=== PATIENT | female | born 1940 | race Caucasian/White ===

== ENCOUNTER 2017-10-14 09:26 | Inpatient (IN) | payer MEDICARE, MEDICAID ==
[2017-10-14 10:19] LABS: #Basophils 0.1 thou/uL (0.0-0.2); #Eosinphils 0.4 thou/uL (0.0-0.7); #Lymphocytes 2.7 thou/uL (1.20-3.40); #Monocytes 0.5 thou/uL (0.11-0.59); #Neutrophils 3.8 thou/uL (1.40-6.50); %Eosinophils 5.6 % (0.0-10.0); %Lymphocytes 36.4 % (21.0-51.0); %Monocytes 6.3 % (0.0-10.0); Hematocrit 42.4 % (36.0-47.0); Mean Platelet Volume 7.8 fL (7.4-10.4); Red Blood Cell (RBC) Count 4.72 mill/uL (4.20-5.40); White Blood Cell (WBC) Count 7.5 thou/uL (4.8-10.8)
[2017-10-14] MEDS ORDERED: Ketorolac Tromethamine 30 MG/ML VIAL ONE ×2 (10:25)
[2017-10-14] MEDS ORDERED: Lorazepam 2 MG/ML VIAL ONE (10:25)
[2017-10-14 10:37] LABS: ALT (SGPT) 10 U/L (8-55); AST (SGOT) 17 U/L (5-34); Acetaminophen Less than 6.0 mcg/mL (10.0-30.0); Alkaline Phosphatase 121 U/L (40-150); Anion Gap 16 mmol/L (10-20); BUN (Urea Nitrogen) 18 mg/dL (9.8-20.1); Bilirubin, Total 0.3 mg/dL (0.2-1.2); CK (CPK) 58 U/L (29-168); Calc. Creatinine Clearance 0 mL/min (70-130); Calcium 9.2 mg/dL (7.8-10.44); Carbon Dioxide 20 mmol/L (23-31); Chloride 107 mmol/L (98-107); Estimated GFR-MDRD 51; Globulin 3.1 g/dL (2.4-3.5); Salicylate Less than 8.0 mg/dL (15.0-30.0)
[2017-10-14 10:52] LABS: Troponin I 0.013 ng/mL (< 0.028)
--- NOTE | 2017-10-14 12:10 | CT ---
CT BRAIN: Date: 10/14/17 PROVIDED CLINICAL HISTORY: Altered mental status. FINDINGS: The ventricular system appears normal in size and morphology. There is no evidence for intracranial h emorrhage or mass effect. The extracranial soft tissues and osseous structures demonstrate no acute a bnormality. IMPRESSION: No evidence for intracranial hemorrhage or mass effect. POS: [facility]
[2017-10-14 13:07] LABS: Bilirubin Negative (Negative); Blood, Urine Negative (Negative); Glucose, Urine (Dipstick) Negative (Negative); Ketone, Urine Negative (Negative); Nitrite Negative (Negative); Protein, Urine (Dipstick) Negative (Neg-Trace); Urobilinogen 0.2 mg/dL (0.2-1.0)
[2017-10-14 13:19] LABS: Amphetamine Not Detected (NotDetected); Methadone Not Detected (NotDetected); Methamphetamine Not Detected (NotDetected)
[2017-10-14] MEDS ORDERED: Morphine 4 MG/ML VIAL ONE (15:09)
[2017-10-14] MEDS ORDERED: Bisacodyl 5 MG TAB PO PRN (15:44)
[2017-10-14] MEDS ORDERED: Ondansetron HCl/PF 4 MG/2 ML Vial IVP PRN (15:44)
[2017-10-14 15:49] VITALS: BMI 29.2
[2017-10-14] MEDS ORDERED: Morphine PF 1 MG/ML SYR IVP SCH (16:00)
--- NOTE | 2017-10-14 16:13 | HP ---
HISTORY OF PRESENT ILLNESS: Mrs. Hogan is a 76 years old woman. She came to this facility earlier today, because of increasing confusion, hallucination, which she has been experimenting for the last 2 weeks or so. The patient has a history of chronic backache. She was on narcotics. Recen tly, she decided to get off of her narcotics. She started experimenting some vision problems we ment ioned earlier. She stopped her narcotics and she received some substitute medication from her primar y physician a couple of days ago, which are yet to be identified. However, her condition did not im prove. She came to the ER and was found to be very agitated, confused, hallucinating. In view of th is fact, it was decided to admit her for management. PAST MEDICAL HISTORY: Remarkable for hypertension; diet-controlled diabetes mellitus; COPD; and she was told to have some valvular heart disease, which cannot be identified. We have to mention that hi story is obtained from the . There is no prior history of congestive heart failure. PAST SURGICAL HISTORY: Remarkable for podiatric surgery, hysterectomy, appendectomy, multiple back s urgeries. ALLERGIES: NYQUIL, STADOL, TOFRANIL and TRAMADOL. SOCIAL HISTORY: She is a former smoker; last time she smoked was more than 4 years ago. There is no history of ETOH abuse. FAMILY HISTORY: Reviewed and is not contributory. REVIEW OF SYSTEMS: Constitutional: There is no fever, no weakness. HEENT: No headache, no ocular pain, no sore throat, no rhinorrhea, no earache, no epistaxis. Neck: No neck pain, no neck stiffnes s. Cardiovascular: No shortness of breath. No chest pain. Pulmonary: No coughing. Gastrointesti nal: She vomited twice this morning. No abdominal pain, no diarrhea. Genitourinary: No dysuria, n o hematuria. Endocrinology: No heat or cold intolerance. No polyuria, polydipsia or polyphagia. M usculoskeletal: History of chronic backache. No muscle pain. Skin: No rash, no itching. Allergie s: No hayfever. Hematology: No abnormal bleeding, no ecchymosis. Lymphatic: No palpable lymphade nopathy, no painful lymphadenopathy. Psychiatric: Very agitated, hallucinating at this time. Neuro logic: No seizure. PHYSICAL EXAMINATION: GENERAL: At the current time, she is alert, agitated as we mentioned earlier. VITAL SIGNS: Her latest vital signs show temperature of 97.5, pulse rate 85, respiratory rate of 20, blood pressure 167/80. HEENT: Her head is normocephalic and atraumatic. Both pupils equal, reactive. Ears and nose normal . Oral mucosa is moist. Pharyngeal area is clear. NECK: Supple. There is no distention of jugular vein. No lymphadenopathy felt. Thyroid gland not palpable. There is no carotid bruit. CHEST: Symmetrical with S1, S2. LUNGS: Clear. ABDOMEN: Soft. Bowel sounds are heard. We could not appreciate any organomegaly. There is no foca l area of tenderness. EXTREMITIES: Limbs show no edema. NEUROLOGIC: She moves all extremities. LABORATORY DATA: CBC showed WBC of 7.5, hemoglobin of 13.6, hematocrit of 42.4, MCV of 89.9, platele ts of 312. Chemistry and electrolytes show sodium of 139, potassium 4.2, chloride 107, CO2 of 20, BU N 18, creatinine 1.05, glucose 113, calcium 9.2, total bilirubin 0.3, AST 17, ALT 10, alkaline phosph atase 121, ammonia 19. CPK 58, troponin 0.013. Total protein 7.0, albumin 3.9, globulin 3.1. TSH 3 .2912. Urinalysis shows specific gravity of 1.010, pH of 6.5, otherwise negative. Drug screen is po sitive only for benzodiazepine, negative for opiates. Head CT was reported to show no evidence of in tracranial hemorrhage or mass effect. ASSESSMENT AND PLAN: This is a 76 years old woman with history of chronic backache, hypert ension, chronic obstructive pulmonary disease, controlled-diabetes mellitus, who recently stopped her narcotics, developed some agitation and hallucination, which had been getting worse over the last 2 weeks or so. Her drug screen is negative for narcotics suggesting possible narcotic withdrawal. We will give a trial of morphine 4 mg IV stat. If her symptoms improve, we will start her on methadone. She will be admitted to the stroke floor for observation.
[2017-10-14] MEDS ORDERED: FLU VACC TS2017-18 (>65YR) 0.5 ML SYRINGE IM ONE (16:15)
[2017-10-14] MEDS: Sodium Chloride 0.9% 1,000 ML IV SCH (17:20)
[2017-10-14] MEDS ORDERED: METHadone HCl 10 MG TAB PO SCH (18:00)
[2017-10-14] MEDS: Famotidine/PF 20 mg/2ml Vial SLOW IVP SCH (21:41)
[2017-10-15] MEDS: Sodium Chloride 0.9% 1,000 ML IV SCH ×3 (03:17→21:19)
[2017-10-15] MEDS: Famotidine/PF 20 mg/2ml Vial SLOW IVP SCH ×2 (08:56→20:29)
[2017-10-15] MEDS: Enoxaparin Sodium 40 MG/0.4 ML SYRINGE SC SCH (08:57)
[2017-10-15] MEDS ORDERED: METHadone HCl 10 MG TAB PO SCH ×2 (09:00)
[2017-10-15] MEDS: Acetaminophen 500 MG TAB PO PRN (09:07)
--- NOTE | 2017-10-15 09:32 | PDOC.PN ---
- Subjective Encounter Start Date: 10/15/17 Encounter Start Time: 09:15 +diffuse pain.. - Objective Resuscitation Status: Resuscitation Status FULL:Full Resuscitation Vital Signs & Weight: Vital Signs (12 hours) Temp Pulse Resp BP Pulse Ox 10/15/17 08:00 98.3 F 88 20 158/59 H 92 L 10/15/17 04:04 98.5 F 88 14 146/78 H 94 L 10/14/17 23:55 97.1 F L 80 12 105/50 L 100 Weight Weight 185 lb 8 oz I&O: 10/14/17 10/15/17 10/16/17 06:59 06:59 06:59 Intake Total 1161 Output Total 700 Balance 461 Result Diagrams: 10/14/17 10:00 10/14/17 10:00 Additional Labs: Accuchecks 10/15/17 10/14/17 10/14/17 06:08 20:56 16:49 POC Glucose 112 H 109 106 10/14/17 15:28 POC Glucose 110 Phys Exam - Physical Examination Constitutional: NAD (Less agitated..) HEENT: sclera anicteric Neck: no JVD Respiratory: clear to auscultation bilateral Cardiovascular: RRR Gastrointestinal: soft Musculoskeletal: no edema Neurological: moves all 4 limbs Dx/Plan (1) Opiate withdrawal Code(s): 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 Comment: still agitated, but better. (2) HTN (hypertension) Code(s): I10 - ESSENTIAL (PRIMARY) HYPERTENSION Status: Chronic Comment: stable. (3) COPD (chronic obstructive pulmonary disease) Status: Chronic Comment: stable. (4) Diabetes Code(s): E11.9 - TYPE 2 DIABETES MELLITUS WITHOUT COMPLICATIONS Status: Acute Comment: BS satisfactory.. - Plan Continue methadone. -: Home soon , on methadone. -: To Detox as outpatient.. * .
[2017-10-15] MEDS ORDERED: Naloxone HCl 0.4 mg/ml Vial ONE ×2 (10:24→10:54)
--- NOTE | 2017-10-15 10:43 | PDOC.EVN ---
Event Note - Event Note Event Note: Was lethargic earlier. Responded well to Dilaudid. Decrease Methadone to 20 mg qd.
[2017-10-15] MEDS ORDERED: Naloxone HCl 0.4 mg/ml Vial IV PRN (12:02)
[2017-10-15] MEDS: Naloxone HCl 0.4 mg/ml Vial IV PRN ×2 (17:35→20:29)
[2017-10-16] MEDS: Naloxone HCl 0.4 mg/ml Vial IV PRN (05:10)
[2017-10-16] MEDS: Sodium Chloride 0.9% 1,000 ML IV SCH ×2 (05:17→09:52)
[2017-10-16 08:19] LABS: #Lymphocytes 0.9 thou/uL (1.20-3.40); #Monocytes 0.7 thou/uL (0.11-0.59); #Neutrophils 9.6 thou/uL (1.40-6.50); %Basophils 0.3 % (0.0-1.0); %Eosinophils 0.3 % (0.0-10.0); %Lymphocytes 7.8 % (21.0-51.0); %Monocytes 5.9 % (0.0-10.0); Hematocrit 37.7 % (36.0-47.0); Mean Platelet Volume 7.8 fL (7.4-10.4); Red Blood Cell (RBC) Count 4.07 mill/uL (4.20-5.40); White Blood Cell (WBC) Count 11.2 thou/uL (4.8-10.8)
[2017-10-16 08:30] LABS: Anion Gap 9 mmol/L (10-20); BUN (Urea Nitrogen) 19 mg/dL (9.8-20.1); BUN/Creatinine Ratio 19.79; Calc. Creatinine Clearance 67 mL/min (70-130); Calcium 8.5 mg/dL (7.8-10.44); Carbon Dioxide 25 mmol/L (23-31); Chloride 113 mmol/L (98-107); Estimated GFR-MDRD 56; Phosphorus 2.7 mg/dL (2.3-4.7)
[2017-10-16] MEDS ORDERED: METHadone HCl 10 MG TAB PO SCH ×2 (09:00)
[2017-10-16] MEDS ORDERED: CCU Electrolyte Replacement 1 EACH FS ONE (09:45)
[2017-10-16] MEDS ORDERED: Potassium Chloride 40 MEQ in Premix Bag 1 BAG IVPB PRN (09:51)
[2017-10-16] MEDS ORDERED: Magnesium 2 GM/NS 0.9% 100 ML 2 GM in Premix Bag 1 BAG IVPB PRN (09:51)
[2017-10-16] MEDS ORDERED: Potassium Chloride 40 MEQ in Sodium Chloride 0.9% 250 ML 250 ML IVPB PRN (09:51)
[2017-10-16] MEDS ORDERED: Potassium Phosphate 15 MMOL in Sodium Chloride 0.9% 250 ML 250 ML IV PRN (09:51)
[2017-10-16] MEDS ORDERED: Potassium Chloride 20 MEQ TAB PO PRN (09:51)
[2017-10-16] MEDS ORDERED: Potassium Phosphate 9 MMOL in Sodium Chloride 0.9% 100 ML IVPB PRN (09:51)
[2017-10-16] MEDS ORDERED: Magnesium Oxide 400 MG TAB PO PRN ×2 (09:51)
[2017-10-16] MEDS ORDERED: CCU ELECTROLYTE REPLACEMENT PROTOCOL FS PRN (09:51)
[2017-10-16] MEDS ORDERED: Potassium Phosphate 12 MMOL in Sodium Chloride 0.9% 250 ML 250 ML IV PRN (09:51)
[2017-10-16] MEDS: Famotidine/PF 20 mg/2ml Vial SLOW IVP SCH ×2 (09:52→20:34)
[2017-10-16] MEDS: Lorazepam 2 MG/ML VIAL SLOW IVP PRN ×2 (09:53→18:38)
[2017-10-16] MEDS: Enoxaparin Sodium 40 MG/0.4 ML SYRINGE SC SCH (10:14)
--- NOTE | 2017-10-16 10:53 | CON ---
DATE OF CONSULTATION: 10/16/2017 CONSULTING PHYSICIAN: Hospitalist group. REASON FOR CONSULTATION: Acute respiratory failure. HISTORY OF PRESENT ILLNESS: The patient is a 76-year-old female who was admitted to this facility on 10/14/2017 because of confusion and hallucinations. It has been felt that she was in narcotic withd buffy. She has been receiving some methadone and has periodically need reversal with Narcan due to o clair sedation. This morning that type of episode has happened again. She is currently confused and s he is unable to give me much in the way of history what I have is obtained from the medical records. PAST MEDICAL HISTORY: 1. Hypertension. 2. Diabetes mellitus type 2. 3. Chronic obstructive pulmonary disease. 4. Valvular heart disease. PAST SURGICAL HISTORY: Foot surgery, hysterectomy, appendectomy, multiple back surgeries. ALLERGIES: NYQUIL, STADOL, TOFRANIL, TRAMADOL. SOCIAL HISTORY: Former smoker, quit about 40 years ago. Does not consume alcohol. MEDICATIONS PRIOR TO ADMISSION: Valacyclovir 1000 mg b.i.d., Paxil 40 mg daily, levothyroxine 25 mc g daily, gabapentin 300 mg t.i.d., lisinopril 10 mg b.i.d., Clarinex 5 mg daily, promethazine 25 mg a s needed, lorazepam 1 mg p.o. t.i.d., metformin 500 mg daily. I do not see any documentation of what narcotics she was taking as an outpatient. REVIEW OF SYSTEMS: Cannot reliably be obtained secondary to patient's confusion. PHYSICAL EXAMINATION: VITAL SIGNS: Temperature 102, pulse 95, respirations 12, blood pressure 180/60, O2 saturation is 96% on BiPAP. GENERAL: She is an elderly female who is confused. She is breathing calmly on BiPAP at this time. HEENT: Exam is unremarkable. NECK: Without adenopathy or JVD. LUNGS: Coarse rhonchi bilaterally. CARDIOVASCULAR: S1, S2, slightly tachycardic without murmur. ABDOMEN: Soft and nontender. EXTREMITIES: No clubbing, cyanosis, or edema. Moves all 4 extremities. LABORATORY DATA AND IMAGING: White blood cell count 11.2, hematocrit 37.7, and platelet count 214,00 0. Sodium 143, potassium 4.4, chloride 113, CO2 25, BUN 19, creatinine 0.9, and glucose 127. Urinal ysis showed benzodiazepines. Chest x-ray shows no acute infiltrates. ASSESSMENT: 1. Suspect that she has some degree of aspiration pneumonitis. 2. I am not sure that we are truly dealing with narcotic withdrawal. If she decided to come off the narcotics, I do not understand how her urine screen got already being cleared. I would have some shah spicion that this could be benzodiazepine withdrawal instead. RECOMMENDATIONS: 1. Treatment of aspiration pneumonitis with Zosyn. 2. Noninvasive mechanical ventilation as needed. 3. Stop the methadone. 4. Add a low dose of benzodiazepine. 5. I will follow with you. The above encompassed 45 minutes of critical care time.
--- NOTE | 2017-10-16 11:06 | RAD ---
AP VIEW CHEST: Date: 10/16/17 HISTORY: Respiratory distress. FINDINGS: AP view of chest obtained. Comparison made to previous exam from 06/11/15. AP view of chest demonstrates EKG leads seen over the chest. The lungs are well aerated. No evidence of active intrathoracic disease seen. No evidence of effusions, pneumonia, or pneumothorax seen. Subo ptimal inspiratory effort is seen. IMPRESSION: Unremarkable AP view of chest. No acute intrathoracic abnormality seen. POS: [facility]
[2017-10-16] MEDS: Piperacillin/Tazobactam 3.375 GM in Sodium Chloride 0.9% 100 ML IVPB SCH ×3 (12:36→23:29)
[2017-10-16] MEDS: Sodium Chloride 0.45% 1,000 ML IV SCH ×2 (12:40→21:33)
[2017-10-16] MEDS: Gabapentin 300 MG CAP PO SCH ×2 (16:01→20:34)
[2017-10-16] MEDS: Lisinopril 10 MG TAB PO SCH (20:33)
--- NOTE | 2017-10-16 21:04 | PDOC.PN ---
- Subjective Encounter Start Date: 10/16/17 Encounter Start Time: 14:30 Patient seen and examined. on NIPPV. Chart reviewed. Events noted. Transferred to CCU for acute resp failure - Objective MAR Reviewed: Yes Vital Signs & Weight: Vital Signs (12 hours) Temp Pulse Resp BP Pulse Ox 10/16/17 20:33 137/44 L 10/16/17 20:00 100.2 F H 10/16/17 19:43 83 10/16/17 17:00 98.5 F 10/16/17 14:39 82 10/16/17 14:37 82 16 91 L 10/16/17 13:00 98.9 F 10/16/17 11:30 100.8 F H 10/16/17 11:19 86 14 99 10/16/17 11:15 87 10/16/17 09:24 95 Weight Weight 193 lb 11.2 oz Most Recent Monitor Data Heart Rate from ECG 85 NIBP 137/44 NIBP BP-Mean 68 Respiration from ECG 12 SpO2 98 I&O: 10/15/17 10/16/17 10/17/17 06:59 06:59 06:59 Intake Total 887 731 Output Total 1025 450 Balance -138 281 Result Diagrams: 10/17/17 03:55 10/16/17 08:01 Additional Labs: Accuchecks 10/16/17 10/15/17 06:05 21:21 POC Glucose 134 H 109 Radiology Reviewed by me: Yes (CXR - ?infiltrate at bases) EKG Reviewed by me: Yes (Tele SR) Phys Exam - Physical Examination On NIPPV, lethargic Respiratory: no wheezing, no rhonchi Symmetrical, bibasilar rales Cardiovascular: RRR, no rub no heave/pulsation Gastrointestinal: soft, non-tender, no distention, positive bowel sounds Musculoskeletal: no edema Neurological: moves all 4 limbs Deviation from normal: Neuro - cannot assess due to current mentation Dx/Plan - Plan respiratory therapy, DVT proph w/lovenox, DVT proph w/SCDs IMPRESSION: 1. Toxic Metabolic encephalopathy/Acute hypoxic respiratory failure - ?etio 2. s/p Code green with acute hypoxic resp failure (10/15 and 10/16) due to narcotic OD - responded to Narcan 3. CKD 3 4. DM2 5. Chronic pain syndrome on chronic narcotics 6. HTN 7. Obesity BMI 31.3 8. COPD 9. Aspiration pneumonitis PLAN: * Methadone discontinued * On NIPPV * Pulm input appreciated * Atbx started * Cont to monitor * Cont other meds as below Review of Systems - Review of Systems Other: Cannot obtain due to current cognition - Medications/Allergies Allergies/Adverse Reactions: Allergies Allergy/AdvReac Type Severity Reaction Status Date / Time butorphanol [From Stadol] Allergy Verified 10/14/17 15:52 dextromethorphan Allergy Verified 10/14/17 15:52 [From NyQuil] doxylamine [From NyQuil] Allergy Verified 10/14/17 15:52 imipramine [From Tofranil] Allergy Verified 10/14/17 15:52 pseudoephedrine [From NyQuil] Allergy Verified 10/14/17 15:52 tramadol Allergy Verified 10/14/17 15:52 Medications: Current Medications Acetaminophen (Tylenol) 500 mg PO QID PRN PRN Reason: Headache/Fever or Pain Last Admin: 10/15/17 09:07 Dose: 500 mg Albuterol/Ipratropium (Duoneb) 3 ml NEB [id number] ON LICENSE OF [facility] Last Admin: 10/16/17 19:41 Dose: 3 ml Bisacodyl (Dulcolax) 10 mg PO DAILYPRN PRN PRN Reason: Constipation Enoxaparin Sodium (Lovenox) 40 mg SC 0900 ON [facility] OF [facility] Last Admin: 10/16/17 10:14 Dose: Not Given Famotidine (Pepcid) 20 mg SLOW IVP Q12HR ON LICENSE OF [facility] Last Admin: 10/16/17 20:34 Dose: 20 mg Gabapentin (Neurontin) 300 mg PO TID ON LICENSE OF [facility] Last Admin: 10/16/17 20:34 Dose: 300 mg Sodium Chloride (1/2 Normal Saline) 1,000 mls @ 75 mls/hr IV .[id number] ON LICENSE OF [facility] Last Admin: 10/16/17 12:40 Dose: 1,000 mls Piperacillin Sod/Tazobactam (Sod 3.375 gm/ Sodium Chloride) 100 mls @ 200 mls/ hr IVPB Q6HR ON LICENSE OF [facility] Last Admin: 10/16/17 17:50 Dose: 100 mls Potassium Chloride 40 meq/ (Sodium Chloride) 270 mls @ 135 mls/hr IVPB ASDIR PRN PRN Reason: FOR SERUM K+ 2.5 - 3.5 Potassium Chloride 40 meq/ (Device) 100 mls @ 50 mls/hr IVPB ASDIR PRN PRN Reason: FOR SERUM K+ 2.5 - 3.5 Magnesium Sulfate 1 gm/ Sodium (Chloride) 102 mls @ 102 mls/hr IV PRN PRN PRN Reason: MAG LEVEL 1.4 - 2.0 Magnesium Sulfate 2 gm/ Device 100 mls @ 100 mls/hr IVPB ASDIR PRN PRN Reason: MAGNESIUM < 1.4 Potassium Phosphate 9 mmol/ (Sodium Chloride) 103 mls @ 25.75 mls/hr IVPB ASDIR PRN PRN Reason: Phosphate 1.0-1.8 Potassium Phosphate 12 mmol/ (Sodium Chloride) 254 mls @ 63.5 mls/hr IV ASDIR PRN PRN Reason: Serum phosphate 0.5-0.9 Potassium Phosphate 15 mmol/ (Sodium Chloride) 255 mls @ 63.75 mls/hr IV ASDIR PRN PRN Reason: Serum Phos < 0.5 Levothyroxine Sodium (Synthroid) 25 mcg PO DAILY [facility] Lisinopril (Zestril) 10 mg PO BID [facility] Last Admin: 10/16/17 20:33 Dose: 10 mg Lorazepam (Ativan) 0.5 mg SLOW IVP Q6H PRN PRN Reason: Anxiety/Agitation Last Admin: 10/16/17 18:38 Dose: 0.5 mg Magnesium Oxide (Magnesium Oxide) 400 mg PO BIDPRN PRN PRN Reason: FOR SERUM MAG 1.4 - 2.0 Magnesium Oxide (Magnesium Oxide) 800 mg PO PRN PRN PRN Reason: FOR SERUM MAG < 1.4 Miscellaneous Medication (Phos-Nak) 1 pkt PO TIDPRN PRN PRN Reason: FOR PHOS LEVEL 1.0 - 1.8 Miscellaneous Medication (Phos-Nak) 2 pkt PO TIDPRN PRN PRN Reason: FOR PHOS LEVEL 0.5 - 1.0 Naloxone HCl (Narcan) 0.2 mg IV Q2M PRN PRN Reason: RESPIRATORY DEPRESSION Last Admin: 10/16/17 05:10 Dose: 0.2 mg Naloxone HCl (Narcan) 0.4 mg IV Q2M PRN PRN Reason: RESPIRATORY DEPRESSION Last Admin: 10/15/17 12:03 Dose: 0.4 mg Ccu Electrolyte (Replacement Protocol) 0 each FS PRN PRN PRN Reason: FOR ELECTROLYTE REPLACEMENT Ondansetron HCl (Zofran) 4 mg IVP Q6H PRN PRN Reason: Nausea/Vomiting Paroxetine HCl (Paxil) 40 mg PO DAILY [facility] Potassium Chloride (K-Dur) 40 meq PO ASDIR PRN PRN Reason: FOR SERUM K+ 2.5 - 3.5 Potassium Chloride (Klor-Con) 40 meq PER TUBE ASDIR PRN PRN Reason: FOR SERUM K+ 2.5-3.5 Sodium Chloride (Flush - Normal Saline) 10 ml IVF Q12HR [facility] Last Admin: 10/16/17 20:34 Dose: 10 ml Sodium Chloride (Flush - Normal Saline) 10 ml IVF PRN PRN PRN Reason: Saline Flush
[2017-10-17 04:41] LABS: #Eosinphils 0.2 thou/uL (0.0-0.7); #Lymphocytes 1.7 thou/uL (1.20-3.40); #Monocytes 0.6 thou/uL (0.11-0.59); #Neutrophils 6.2 thou/uL (1.40-6.50); %Basophils 0.1 % (0.0-1.0); %Eosinophils 1.8 % (0.0-10.0); %Lymphocytes 19.3 % (21.0-51.0); %Monocytes 7.2 % (0.0-10.0); Hematocrit 33.2 % (36.0-47.0); Red Blood Cell (RBC) Count 3.54 mill/uL (4.20-5.40); White Blood Cell (WBC) Count 8.6 thou/uL (4.8-10.8)
[2017-10-17] MEDS: Lorazepam 2 MG/ML VIAL SLOW IVP PRN (04:47)
[2017-10-17] MEDS: Piperacillin/Tazobactam 3.375 GM in Sodium Chloride 0.9% 100 ML IVPB SCH ×3 (06:00→17:44)
--- NOTE | 2017-10-17 09:40 | PRG ---
DATE OF SERVICE: 10/17/2017 PULMONARY OR CRITICAL CARE PROGRESS NOTE SUBJECTIVE: I was able to take Ms. Hogan off the BiPAP this morning. She is able to converse. She knows where she is. She does not know how she got here or what has been going on recently. She is i n no respiratory distress. PHYSICAL EXAMINATION: VITAL SIGNS: Temperature is 98.2, pulse 83, blood pressure 167/57. A 24 hour intake 1705, output 88 5, weight 180 pounds. HEENT: Unremarkable. NECK: Without JVD. CHEST: Clear. CARDIAC: S1 and S2 regular. ABDOMEN: Soft. EXTREMITIES: No edema. LABORATORY DATA: Urine culture demonstrated Proteus mirabilis, but in quantitation, it is 10,000 and 25,000 CFUs per mL. White blood cell count 8.6, hemoglobin 10, hematocrit 33.2, and platelet count 178. Sodium 143, pota ssium 4.4, chloride 113, CO2 25, BUN 19, creatinine 0.9, and glucose 127. ASSESSMENT: 1. Mild benzodiazepine withdrawal which has been controlled well with low dose Ativan. 2. In my opinion, she is not experiencing narcotic withdrawal. 3. Acute respiratory failure related to narcotic administration yesterday. RECOMMENDATIONS: 1. I would avoid methadone. 2. Continue the Zosyn for presumed aspiration pneumonitis. 3. Try off mechanical ventilation today. 4. Up in chair as tolerated. 5. Continue low dose Ativan as needed. 6. Discussed with at the bedside.
[2017-10-17] MEDS: Enoxaparin Sodium 40 MG/0.4 ML SYRINGE SC SCH (10:08)
[2017-10-17] MEDS: Famotidine/PF 20 mg/2ml Vial SLOW IVP SCH ×2 (10:08→19:55)
[2017-10-17] MEDS: PARoxetine 20 MG TAB PO SCH (10:09)
[2017-10-17] MEDS: Lisinopril 10 MG TAB PO SCH ×2 (10:09→19:55)
[2017-10-17] MEDS: Levothyroxine Sodium 25 MCG TAB PO SCH (10:09)
[2017-10-17] MEDS: Gabapentin 300 MG CAP PO SCH ×3 (10:09→19:55)
[2017-10-17] MEDS: Sodium Chloride 0.45% 1,000 ML IV SCH (13:22)
[2017-10-17] MEDS: Naloxone HCl 0.4 mg/ml Vial IV PRN (15:00)
--- NOTE | 2017-10-17 17:37 | PDOC.PN ---
- Subjective Encounter Start Date: 10/17/17 Encounter Start Time: 14:00 Patient seen and examined. Lethargic. Was able to communicate earlier. No overnight events - Objective MAR Reviewed: Yes Vital Signs & Weight: Vital Signs (12 hours) Temp Pulse Resp BP Pulse Ox 10/17/17 16:00 100.4 F H 10/17/17 15:10 112 H 30 H 92 L 10/17/17 12:00 98.9 F 10/17/17 10:59 79 16 100 10/17/17 10:09 139/50 L 10/17/17 08:00 98.5 F 10/17/17 07:52 84 10/17/17 07:51 82 22 H Weight Weight 186 lb 4.65 oz Most Recent Monitor Data Heart Rate from ECG 88 NIBP 149/80 NIBP BP-Mean 96 Respiration from ECG 18 SpO2 98 I&O: 10/16/17 10/17/17 10/18/17 06:59 06:59 06:59 Intake Total 887 1705 120 Output Total 1025 885 130 Balance -138 820 -10 Result Diagrams: 10/18/17 04:04 10/18/17 04:04 EKG Reviewed by me: Yes (Tele SR) Phys Exam - Physical Examination Constitutional: NAD Respiratory: no wheezing, no rhonchi Cardiovascular: RRR, no rub Gastrointestinal: soft, non-tender, positive bowel sounds Musculoskeletal: no edema Neurological: moves all 4 limbs Lethargic Dx/Plan - Plan DVT proph w/SCDs IMPRESSION: 1. Toxic Metabolic encephalopathy/Acute hypoxic respiratory failure - Probably due to benzo withdrawal 2. s/p Code green with acute hypoxic resp failure (10/15) due to narcotic OD - responded to Narcan 3. CKD 3 4. DM2 - on sliding scale 5. Chronic pain syndrome - unclear if she takes narcotics at home. 6. HTN 7. Obesity BMI 31.3 8. COPD - on nebs 9. Aspiration pneumonitis -on Zosyn PLAN: * AM labs * Started on benzos PRN * Other home meds started * NIPPV PRN * Pulm input appreciated * Cont to monitor * Cont other meds as below Review of Systems - Review of Systems Constitutional: negative: Fever, Chills, Sweats, Weakness, Malaise, Other Respiratory: negative: Cough, Dry, Shortness of Breath, Hemoptysis, SOB with Excertion, Pleuritic Pain, Sputum, Wheezing Cardiovascular: negative: Chest Pain, Palpitations, Orthopnea, Paroxysmal Noc. Dyspnea, Edema, Light Headedness, Other Gastrointestinal: negative: Nausea, Vomiting, Abdominal Pain, Diarrhea, Constipation, Melena, Hematochezia, Other - Medications/Allergies Allergies/Adverse Reactions: Allergies Allergy/AdvReac Type Severity Reaction Status Date / Time butorphanol [From Stadol] Allergy Verified 10/14/17 15:52 dextromethorphan Allergy Verified 10/14/17 15:52 [From NyQuil] doxylamine [From NyQuil] Allergy Verified 10/14/17 15:52 imipramine [From Tofranil] Allergy Verified 10/14/17 15:52 pseudoephedrine [From NyQuil] Allergy Verified 10/14/17 15:52 tramadol Allergy Verified 10/14/17 15:52 Medications: Current Medications Acetaminophen (Tylenol) 500 mg PO QID PRN PRN Reason: Headache/Fever or Pain Last Admin: 10/15/17 09:07 Dose: 500 mg Albuterol/Ipratropium (Duoneb) 3 ml NEB [id number] [facility] Last Admin: 10/17/17 15:10 Dose: 3 ml Bisacodyl (Dulcolax) 10 mg PO DAILYPRN PRN PRN Reason: Constipation Enoxaparin Sodium (Lovenox) 40 mg SC 0900 [facility] Last Admin: 10/17/17 10:08 Dose: 40 mg Famotidine (Pepcid) 20 mg SLOW IVP Q12HR [facility] Last Admin: 10/17/17 10:08 Dose: 20 mg Gabapentin (Neurontin) 300 mg PO TID [facility] Last Admin: 10/17/17 15:55 Dose: Not Given Sodium Chloride (1/2 Normal Saline) 1,000 mls @ 75 mls/hr IV .[id number] [facility] Last Admin: 10/17/17 13:22 Dose: 1,000 mls Piperacillin Sod/Tazobactam (Sod 3.375 gm/ Sodium Chloride) 100 mls @ 200 mls/ hr IVPB Q6HR [facility] Last Admin: 10/17/17 13:10 Dose: 100 mls Potassium Chloride 40 meq/ (Sodium Chloride) 270 mls @ 135 mls/hr IVPB ASDIR PRN PRN Reason: FOR SERUM K+ 2.5 - 3.5 Potassium Chloride 40 meq/ (Device) 100 mls @ 50 mls/hr IVPB ASDIR PRN PRN Reason: FOR SERUM K+ 2.5 - 3.5 Magnesium Sulfate 1 gm/ Sodium (Chloride) 102 mls @ 102 mls/hr IV PRN PRN PRN Reason: MAG LEVEL 1.4 - 2.0 Magnesium Sulfate 2 gm/ Device 100 mls @ 100 mls/hr IVPB ASDIR PRN PRN Reason: MAGNESIUM < 1.4 Potassium Phosphate 9 mmol/ (Sodium Chloride) 103 mls @ 25.75 mls/hr IVPB ASDIR PRN PRN Reason: Phosphate 1.0-1.8 Potassium Phosphate 12 mmol/ (Sodium Chloride) 254 mls @ 63.5 mls/hr IV ASDIR PRN PRN Reason: Serum phosphate 0.5-0.9 Potassium Phosphate 15 mmol/ (Sodium Chloride) 255 mls @ 63.75 mls/hr IV ASDIR PRN PRN Reason: Serum Phos < 0.5 Levothyroxine Sodium (Synthroid) 25 mcg PO DAILY [facility] Last Admin: 10/17/17 10:09 Dose: 25 mcg Lisinopril (Zestril) 10 mg PO BID [facility] Last Admin: 10/17/17 10:09 Dose: 10 mg Lorazepam (Ativan) 0.5 mg SLOW IVP Q6H PRN PRN Reason: Anxiety/Agitation Last Admin: 10/17/17 04:47 Dose: 0.5 mg Magnesium Oxide (Magnesium Oxide) 400 mg PO BIDPRN PRN PRN Reason: FOR SERUM MAG 1.4 - 2.0 Magnesium Oxide (Magnesium Oxide) 800 mg PO PRN PRN PRN Reason: FOR SERUM MAG < 1.4 Miscellaneous Medication (Phos-Nak) 1 pkt PO TIDPRN PRN PRN Reason: FOR PHOS LEVEL 1.0 - 1.8 Miscellaneous Medication (Phos-Nak) 2 pkt PO TIDPRN PRN PRN Reason: FOR PHOS LEVEL 0.5 - 1.0 Naloxone HCl (Narcan) 0.2 mg IV Q2M PRN PRN Reason: RESPIRATORY DEPRESSION Last Admin: 10/17/17 15:00 Dose: 0.2 mg Naloxone HCl (Narcan) 0.4 mg IV Q2M PRN PRN Reason: RESPIRATORY DEPRESSION Last Admin: 10/15/17 12:03 Dose: 0.4 mg Ondansetron HCl (Zofran) 4 mg IVP Q6H PRN PRN Reason: Nausea/Vomiting Paroxetine HCl (Paxil) 40 mg PO DAILY [facility] Last Admin: 10/17/17 10:09 Dose: 40 mg Potassium Chloride (K-Dur) 40 meq PO ASDIR PRN PRN Reason: FOR SERUM K+ 2.5 - 3.5 Potassium Chloride (Klor-Con) 40 meq PER TUBE ASDIR PRN PRN Reason: FOR SERUM K+ 2.5-3.5 Sodium Chloride (Flush - Normal Saline) 10 ml IVF Q12HR [facility] Last Admin: 10/17/17 10:10 Dose: 10 ml Sodium Chloride (Flush - Normal Saline) 10 ml IVF PRN PRN PRN Reason: Saline Flush
[2017-10-17] MEDS ORDERED: Sodium Bicarb 50 MEQ/50 ML Abboject 8.4% SYRINGE ONE (19:49)
[2017-10-18] MEDS: Piperacillin/Tazobactam 3.375 GM in Sodium Chloride 0.9% 100 ML IVPB SCH ×2 (00:30→05:32)
[2017-10-18] MEDS: Sodium Chloride 0.45% 1,000 ML IV SCH (00:37)
[2017-10-18] MEDS ORDERED: Sodium Chloride 0.9% 1,000 ML IV SCH (04:00)
[2017-10-18 04:57] LABS: #Eosinphils 0.2 thou/uL (0.0-0.7); #Lymphocytes 1.4 thou/uL (1.20-3.40); #Monocytes 0.4 thou/uL (0.11-0.59); #Neutrophils 3.7 thou/uL (1.40-6.50); %Basophils 0.5 % (0.0-1.0); %Eosinophils 3.4 % (0.0-10.0); %Lymphocytes 24.3 % (21.0-51.0); %Monocytes 6.8 % (0.0-10.0); Hematocrit 30.6 % (36.0-47.0); Red Blood Cell (RBC) Count 3.27 mill/uL (4.20-5.40); White Blood Cell (WBC) Count 5.7 thou/uL (4.8-10.8)
[2017-10-18 05:11] LABS: Anion Gap 11 mmol/L (10-20); BUN (Urea Nitrogen) 16 mg/dL (9.8-20.1); Calc. Creatinine Clearance 80 mL/min (70-130); Calcium 8.2 mg/dL (7.8-10.44); Carbon Dioxide 25 mmol/L (23-31); Chloride 109 mmol/L (98-107); Estimated GFR-MDRD 73
--- NOTE | 2017-10-18 08:10 | PRG ---
DATE OF SERVICE: 10/18/2017 SUBJECTIVE: She is awake. She is able to follow commands. She states that she is having some mild back pain. She did require one dose of Narcan yesterday because she was felt to be excessively sleep y that did help with symptoms. PHYSICAL EXAMINATION: VITAL SIGNS: Temperature is 98.7, pulse 69, blood pressure 128/54. A 24-hour intake 2559, output 11 40. HEENT: Unremarkable. NECK: No JVD. LUNGS: Clear to auscultation. CARDIAC: Rhythm is regular without murmur. ABDOMEN: Soft and nontender. EXTREMITIES: No edema. She moves all 4 extremities. LABORATORY DATA: Sodium 141, potassium 3.9, chloride 109, CO2 25, BUN 16, creatinine 0.7, and glucos e 103. White blood cell count 5.7, hemoglobin 9.8, hematocrit 30.6, and platelet count 169. ASSESSMENT: 1. 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 2. Mild benzodiazepine withdrawal at the time of admission, which seems to be controlled. 3. Status post acute respiratory failure which required temporary bilevel positive airway pressure. 4. Suspected aspiration pneumonia. PLAN: 1. Go ahead and convert to oral antibiotics. 2. She can probably be transferred back to the stroke unit. 3. We would avoid all narcotic medication and use low dose Ativan only as needed.
[2017-10-18] MEDS: Enoxaparin Sodium 40 MG/0.4 ML SYRINGE SC SCH (08:46)
[2017-10-18] MEDS: Levothyroxine Sodium 25 MCG TAB PO SCH (08:47)
[2017-10-18] MEDS: PARoxetine 20 MG TAB PO SCH (08:47)
[2017-10-18] MEDS: Lisinopril 10 MG TAB PO SCH ×2 (08:47→21:13)
[2017-10-18] MEDS: Sodium Chloride 0.9% 1,000 ML IV SCH ×2 (08:48→21:17)
[2017-10-18] MEDS: Cefdinir 300 MG CAP PO SCH (08:50)
[2017-10-18] MEDS: Famotidine 20 MG TAB PO SCH ×2 (08:50→21:13)
[2017-10-18] MEDS: Acetaminophen 500 MG TAB PO PRN (10:54)
[2017-10-18] MEDS ORDERED: HYDROcodone/Acetaminophen 5/325 mg Tablet PO PRN (11:53)
--- NOTE | 2017-10-18 12:40 | PDOC.PN ---
- Subjective Encounter Start Date: 10/18/17 Encounter Start Time: 12:39 Patient seen and examined. No new complaints. No overnight events. Mentation improving - Objective MAR Reviewed: Yes Vital Signs & Weight: Vital Signs (12 hours) Temp Pulse Resp BP Pulse Ox 10/18/17 10:37 83 16 99 10/18/17 10:00 99.9 F H 86 20 98 10/18/17 08:47 149/65 H 10/18/17 08:03 79 16 96 10/18/17 08:00 98.8 F 79 16 99 10/18/17 04:00 98.7 F 10/18/17 02:21 76 13 95 10/18/17 01:00 98.8 F Weight Weight 191 lb 5.78 oz Most Recent Monitor Data Heart Rate from ECG 90 NIBP 141/59 NIBP BP-Mean 81 Respiration from ECG 23 SpO2 87 I&O: 10/17/17 10/18/17 10/19/17 06:59 06:59 06:59 Intake Total 1705 2569 740 Output Total 885 1140 100 Balance 820 1429 640 Result Diagrams: 10/18/17 04:04 10/19/17 05:08 EKG Reviewed by me: Yes (Tele SR) Phys Exam - Physical Examination Constitutional: NAD Respiratory: no wheezing, no rales, no rhonchi Cardiovascular: RRR, no rub Gastrointestinal: soft, non-tender, positive bowel sounds Musculoskeletal: no edema Neurological: non-focal, normal sensation, moves all 4 limbs Dx/Plan - Plan cont current plan of care, continue antibiotics, PT/OT, out of bed/ambulate, DVT proph w/SCDs IMPRESSION: 1. Toxic Metabolic encephalopathy/Acute hypoxic respiratory failure - Probably due to benzo withdrawal - improving. 2. s/p Code green with acute hypoxic resp failure (10/15) due to narcotic OD - responded to Narcan - Probably due to Methadone 3. CKD 3 4. DM2 - on sliding scale 5. Chronic pain syndrome 6. HTN 7. Obesity BMI 31.3 8. COPD - on nebs 9. Aspiration pneumonitis PLAN: * ERICKA glass * Change Tylenol to scheduled * Cont to monitor * Fall precautions * Patient declined Lidoderm patch - had reaction to it in the past. Review of Systems - Medications/Allergies Allergies/Adverse Reactions: Allergies Allergy/AdvReac Type Severity Reaction Status Date / Time butorphanol [From Stadol] Allergy Verified 10/14/17 15:52 dextromethorphan Allergy Verified 10/14/17 15:52 [From NyQuil] doxylamine [From NyQuil] Allergy Verified 10/14/17 15:52 imipramine [From Tofranil] Allergy Verified 10/14/17 15:52 pseudoephedrine [From NyQuil] Allergy Verified 10/14/17 15:52 tramadol Allergy Verified 10/14/17 15:52 Medications: Current Medications Acetaminophen (Tylenol) 650 mg PO TID [facility] Albuterol/Ipratropium (Duoneb) 3 ml NEB [id number] [facility] Last Admin: 10/18/17 10:37 Dose: 3 ml Bisacodyl (Dulcolax) 10 mg PO DAILYPRN PRN PRN Reason: Constipation Last Admin: 10/18/17 08:54 Dose: 10 mg Cefdinir (Omnicef) 600 mg PO DAILY [facility] Last Admin: 10/18/17 08:50 Dose: 600 mg Enoxaparin Sodium (Lovenox) 40 mg SC 0900 [facility] Last Admin: 10/18/17 08:46 Dose: 40 mg Famotidine (Pepcid) 20 mg PO BID [facility] Last Admin: 10/18/17 08:50 Dose: 20 mg Sodium Chloride (Normal Saline 0.9%) 1,000 mls @ 70 mls/hr IV .[id number] [facility] Last Admin: 10/18/17 08:48 Dose: Not Given Levothyroxine Sodium (Synthroid) 25 mcg PO DAILY [facility] Last Admin: 10/18/17 08:47 Dose: 25 mcg Lidocaine (Lidoderm 5% Patch) 1 patch TD 1300 [facility] Lisinopril (Zestril) 10 mg PO BID [facility] Last Admin: 10/18/17 08:47 Dose: 10 mg Lorazepam (Ativan) 0.5 mg SLOW IVP Q6H PRN PRN Reason: Anxiety/Agitation Last Admin: 10/17/17 04:47 Dose: 0.5 mg Miscellaneous Medication (Lidocaine Patch Removal) 1 each TOP 0100 [facility] Naloxone HCl (Narcan) 0.2 mg IV Q2M PRN PRN Reason: RESPIRATORY DEPRESSION Last Admin: 10/17/17 15:00 Dose: 0.2 mg Naloxone HCl (Narcan) 0.4 mg IV Q2M PRN PRN Reason: RESPIRATORY DEPRESSION Last Admin: 10/15/17 12:03 Dose: 0.4 mg Paroxetine HCl (Paxil) 40 mg PO DAILY [facility] Last Admin: 10/18/17 08:47 Dose: 40 mg
[2017-10-18] MEDS ORDERED: Lidocaine 5% Patch TD SCH (13:00)
[2017-10-18] MEDS: Acetaminophen 325 MG TAB PO SCH ×2 (15:52→21:13)
[2017-10-19] MEDS ORDERED: Lidocaine Patch Removal 1 EACH TOP SCH (01:00)
[2017-10-19 05:56] LABS: Anion Gap 10 mmol/L (10-20); BUN (Urea Nitrogen) 11 mg/dL (9.8-20.1); Calc. Creatinine Clearance 95 mL/min (70-130); Calcium 8.4 mg/dL (7.8-10.44); Carbon Dioxide 26 mmol/L (23-31); Chloride 112 mmol/L (98-107); Estimated GFR-MDRD 90
[2017-10-19 07:07] VITALS: BP 199/93; TEMP 99
[2017-10-19] MEDS: Levothyroxine Sodium 25 MCG TAB PO SCH (09:13)
[2017-10-19] MEDS: Cefdinir 300 MG CAP PO SCH (09:13)
[2017-10-19] MEDS: Acetaminophen 325 MG TAB PO SCH (09:13)
[2017-10-19] MEDS: Famotidine 20 MG TAB PO SCH (09:14)
[2017-10-19] MEDS: PARoxetine 20 MG TAB PO SCH (09:14)
[2017-10-19] MEDS: Enoxaparin Sodium 40 MG/0.4 ML SYRINGE SC SCH (09:15)
[2017-10-19] MEDS: Lisinopril 10 MG TAB PO SCH (09:15)
--- NOTE | 2017-10-19 14:07 | DIS ---
DATE OF DISCHARGE: 10/19/2017 DISCHARGE DISPOSITION: Home, 24-hour supervision with fall precaution was emphasized. FOLLOWUP: Follow up with primary care physician, Dr. Morales in 1 week. The patient was seen and examined on the day of discharge, denies any new complaints. She is alert, awake, oriented x3. Family at the bedside. DISCHARGE MEDICATIONS: As same as admission medication. The patient was advised to take lorazepam a s needed for anxiety. She was also started on Omnicef 600 mg daily for the next 5 days for pneumonia . Other home medications were resumed including Clarinex 5 mg daily, Neurontin 300 mg three times da ray, levothyroxine 25 mcg daily, lisinopril 10 mg b.i.d., metformin 500 mg daily, Paxil 40 mg daily, promethazine as needed, valacyclovir 1000 mg b.i.d. INPATIENT CONSULTANTS: Pulmonary, Dr. Hanson. BRIEF HOSPITAL COURSE: The patient is a 76-year-old female with hypertension, diabetes mellitus type 2, and COPD, who presented to the hospital with altered mentation. The patient had confusion along with hallucination. She discontinued opioids and benzodiazepines 2 weeks ago. Please refer to the h istory and physical dated 10/14/2017 for further details. The patient was admitted to the hospital with a diagnosis of encephalopathy, probably secondary to di scontinuation of her medications. She was monitored in the intermediate care unit. She received p.r .n. benzodiazepines with good response. Her mentation over the last 24-48 hours has stabilized. She denies any hallucinations. She was seen by Critical Care, Dr. Hanson and required noninvasive posi tive pressure ventilation briefly. She was also diagnosed with aspiration pneumonitis for which she was started on IV antibiotics that has been changed to p.o. The patient also had CODE GREEN on 10/15 as well as repeat CODE GREEN on 10/16 due to respiratory depression probably secondary to opioids. Plan of care was discussed with the patient and the family at the bedside. They stated understanding . FINAL DIAGNOSES: 1. Acute hypoxic respiratory failure/toxic metabolic encephalopathy secondary to medication withdraw al. 2. Status post CODE GREEN with acute hypoxic respiratory failure, probably secondary to opioids. 3. Chronic kidney disease stage 3. 4. Diabetes mellitus type 2. 5. Chronic pain syndrome. 6. Hypertension. 7. Obesity with a body mass index of 31.3. 8. Chronic obstructive pulmonary disease. 9. Aspiration pneumonitis. Plan of care was discussed with the patient and the family at the bedside. They stated understanding. A 24-hour supervision is recommended. Fall precaution was emphasized. DIAGNOSTIC LABS: 1. CBC showed WBC 7.5 with hemoglobin 13.6. 2. Urine drug screen was positive for benzodiazepines. Urine culture showed Proteus mirabilis less than 25,000 colonies. Please note that there were no wbc's or bacteria on urinalysis. 3. Chest x-ray showed scattered bibasilar infiltrates.
== END 2017-10-19 12:35 | disposition home or self-care (01) | DRG 896 ==
LOC: ERS 09:26 → 2SE 15:25 → OBSVTOIN 10-15 17:00 → CCU 10-16 09:07 → 2NO 10-18 10:10
PROVIDERS: ADMIT Hospitalist; ATTEND Hospitalist
PROC: 5A09457 Assistance with Respiratory Ventilation, 24-96 Consecutive Hours, Continuous Positive Airway Pressure (ICD-10-PCS; principal; 2017-10-16)
DX: F11.23 Opioid dependence with withdrawal (principal); G92 Toxic encephalopathy; J69.0 Pneumonitis due to inhalation of food and vomit; J96.01 Acute respiratory failure with hypoxia; J44.9 Chronic obstructive pulmonary disease, unspecified; T40.2X5A Adverse effect of other opioids, initial encounter; G89.4 Chronic pain syndrome; E66.9 Obesity, unspecified; Z68.31 Body mass index [BMI] 31.0-31.9, adult; E11.22 Type 2 diabetes mellitus with diabetic chronic kidney disease; I12.9 Hypertensive chronic kidney disease with stage 1 through stage 4 chronic kidney disease, or unspecified chronic kidney disease; N18.3 Chronic kidney disease, stage 3 (moderate)
CPT/HCPCS: 36415; 36416; 51701; 70450; 71010; 80048; 80053; 80069; 80306; 80307; 81003; 82140; 82553; 83735; 84443; 84484; 85025; 87040; 87077; 87086; 87186; 93005; 94640; 94660; 94760; 96361; 96374; 96375; A4216; A4353; G8978-GP-CJ; G8979-GP-CH; G8996-GN-CI; G8996-GN-CN; G8997-GN-CI; G8997-GN-CJ; J1650; J1885; J2060; J2270; J2274; J2310; J2543; J7050; J7620; S0028

== ENCOUNTER 2018-05-21 11:20 | Inpatient (IN) | payer MEDICARE, MEDICAID ==
--- NOTE | 2018-05-21 12:13 | RAD ---
3 VIEWS RIGHT ANKLE: Date: 05/21/18 COMPARISON: None. HISTORY: Fall, trauma, pain. FINDINGS: The patient is imaged in a type of a brace. There is dislocation of the right ankle, with the talus d islocated posteriorly with respect to the distal tibia. There is an obliquely oriented displaced fibu lar fracture seen distally, the distal fracture fragment directed posteriorly. There is a comminuted fracture of the medial malleolus with an oblique and a transverse component. There may be a posterior malleolar fracture as well. IMPRESSION: Fracture/dislocation of the right ankle. Post reduction imaging advised. POS: [facility]
[2018-05-21] MEDS ORDERED: PROPOFOL 200 MG/20 ML VIAL ONE (12:27)
[2018-05-21] MEDS ORDERED: Glycopyrrolate 0.2 MG/ML 5 ML SYRINGE ONE (12:27)
[2018-05-21] MEDS ORDERED: Ondansetron HCl/PF 4 MG/2 ML Vial ONE (12:27)
[2018-05-21] MEDS ORDERED: PHENYLEPHRINE-NS 100 MCG/ML 10 ML SYRINGE ONE (12:27)
[2018-05-21] MEDS ORDERED: Lidocaine 1% PF 5 ML VIAL ONE (12:27)
[2018-05-21] MEDS ORDERED: Dexamethasone 20 MG/5 ML VIAL ONE (12:27)
--- NOTE | 2018-05-21 13:13 | CT ---
CT BRAIN WITHOUT CONTRAST: HISTORY: Fall, headache. FINDINGS: Comparison is made with the exam of 12/14/16. No evidence of acute infarct, hemorrhage, midline shift, or abnormal extraaxial fluid collection is s een. Changes of chronic small-vessel ischemic disease are again noted in the periventricular white m atter. The ventricular size is stable and the basilar cisterns are patent. The bony calvarium is in tact. The visualized paranasal sinuses and mastoid air cells are well aerated. IMPRESSION: No CT evidence of acute intracranial process. POS: [facility]
--- NOTE | 2018-05-21 13:15 | CT ---
CT CERVICAL SPINE WITH CORONAL AND SAGITTAL REFORMATIONS: HISTORY: Fall, neck pain. FINDINGS: Comparison is made with the exam of 07/31/13. Degenerative changes in the cervical spine are again seen. Changes of interbody fusion at C5-6 level is again noted. Minimal anterolisthesis of C4 over C5 is stable. No acute fracture or dislocation is seen. Facet alignment is maintained. POS: [facility]
[2018-05-21 13:32] LABS: #Eosinphils 0.3 thou/uL (0.0-0.7); #Lymphocytes 1.8 thou/uL (1.20-3.40); #Monocytes 0.4 thou/uL (0.11-0.59); #Neutrophils 4.9 thou/uL (1.40-6.50); %Basophils 0.2 % (0.0-1.0); %Eosinophils 4.3 % (0.0-10.0); %Monocytes 5.6 % (0.0-10.0); %Neutrophils 65.9 % (42.0-75.0); Hemoglobin 13.3 g/dL (12.0-16.0); Mean Corpuscular HGB CONC 32.9 g/dL (32.0-36.0); Mean Corpuscular Hemoglobin 28.5 pg (27.0-31.0); Mean Corpuscular Volume 86.6 fL (78.0-98.0); Mean Platelet Volume 7.5 fL (7.4-10.4); Platelet Count 278 thou/uL (130-400); RBC Distribution Width 13.3 % (11.5-14.5); Red Blood Cell (RBC) Count 4.65 mill/uL (4.20-5.40); White Blood Cell (WBC) Count 7.4 thou/uL (4.8-10.8)
--- NOTE | 2018-05-21 13:51 | CT ---
CT LUMBAR SPINE WITHOUT CONTRAST: Date: 05/21/18 HISTORY: Fall. Post-traumatic pain. COMPARISON: None. TECHNIQUE: CT lumbar spine is performed without contrast administration. Multisequential, multiplanar imaging is performed. FINDINGS: No retroperitoneal mass, lymphadenopathy, or hematoma. No paraspinal hematoma. Symmetric attenuation of the psoas muscles. Visualized solid organs are unremarkable. Vacuum disc phenomenon at L2-L3. Ther e is diffuse bone demineralization. Laminectomy defect at L2-L3. Laminectomy and bone graft material with resultant fusion of the posterior elements at L4, L5, and S1. Calcification of the L4-L5 disc. L imited evaluation of the contents of the central spinal canal and neural foramina due to technique. L umbar spine vertebral body height is maintained. No evidence of a lumbar spine fracture. Visualized b samson pelvis is also intact. T11-T12: No significant central canal stenosis or foraminal narrowing. L1-L2: Generalized disc bulge, ligamentum flavum thickening, and facet hypertrophy result in mild central ca nal stenosis. Mild right and left foraminal narrowing. L2-L3: Posterior decompression. Generalized disc bulge. No high grade central canal stenosis. Mild to modera te bilateral foraminal narrowing. L3-L4: Generalized disc bulge, ligamentum flavum thickening, and facet hypertrophy without high grade centra l canal stenosis or high grade neural foraminal narrowing. L4-L5: No high grade central canal stenosis or high grade foraminal narrowing. L5-S1: No high grade central canal stenosis or high grade foraminal narrowing. IMPRESSION: 1. No post-traumatic change. 2. Postsurgical change as described above. POS: [facility]
[2018-05-21 13:53] LABS: ALT (SGPT) 11 U/L (8-55); AST (SGOT) 16 U/L (5-34); Albumin 3.9 g/dL (3.4-4.8); Alkaline Phosphatase 114 U/L (40-150); Anion Gap 10 mmol/L (10-20); BUN (Urea Nitrogen) 15 mg/dL (9.8-20.1); Bilirubin, Total 0.2 mg/dL (0.2-1.2); Calc. Creatinine Clearance 0 mL/min (70-130); Calcium 8.9 mg/dL (7.8-10.44); Carbon Dioxide 27 mmol/L (23-31); Chloride 106 mmol/L (98-107); Estimated GFR-MDRD 60; Glucose 111 mg/dL (83-110); Potassium 4.2 mmol/L (3.5-5.1); Protein, Total 6.9 g/dL (6.0-8.3); Sodium 139 mmol/L (136-145)
[2018-05-21] MEDS ORDERED: Dextrose 5% in Water 1,000 ML IV PRN ×2 (14:29→17:37)
[2018-05-21] MEDS ORDERED: Dextrose 50% Abboject 50 ML SYRINGE SLOW IVP PRN (14:29)
[2018-05-21] MEDS ORDERED: Ondansetron ODT 4 MG TAB PO PRN (14:30)
[2018-05-21] MEDS ORDERED: Ondansetron HCl/PF 4 MG/2 ML Vial IVP PRN ×3 (14:30→19:10)
[2018-05-21] MEDS ORDERED: Sodium Chloride 0.9% 1,000 ML IV SCH (14:30)
[2018-05-21] MEDS ORDERED: HumaLOG 300 UNITS/3 ML VIAL SC PRN ×2 (14:30→17:37)
[2018-05-21] MEDS ORDERED: CEFAZOLIN/Water 2 GM/20 ML SYRINGE SLOW IVP SCH (14:30)
--- NOTE | 2018-05-21 14:35 | RAD ---
RIGHT ANKLE TWO VIEWS: History: 77-year-old female for post reduction evaluation of ankle fracture. Comparison: 05-21-18 at 11:47 a.m. FINDINGS: Bimalleolar fracture dislocation of the ankle with marked comminution and displacement of the medial component with some improvement in position and alignment but still persistent disruption of the ankl e mortise which is not aligned. IMPRESSION: Persistent ankle mortise disruption although there is some improvement in position and alignment from the prior study. Extensive bimalleolar fractures. POS: [facility]
--- NOTE | 2018-05-21 14:37 | RAD ---
AP CHEST: Indication: History of mechanical fall with right ankle deformity. Comparison: 10-16-17 FINDINGS: The heart size is mildly prominent which is stable. Pulmonary vasculature is mildly prominent which a ppears stable. No focal contusion, pleural effusion or pneumothorax is evident. No acute osseous abno rmality is evident. IMPRESSION: Cardiomegaly and mild pulmonary vascular congestion, similar to a comparison from 2017. POS: [facility]
[2018-05-21] MEDS ORDERED: Acetaminophen 1,000 MG in Premix Bag 1 BAG IVPB PRN (17:25)
[2018-05-21] MEDS ORDERED: Dextrose 25% Abboject 10 ML SYRINGE SLOW IVP PRN (17:26)
[2018-05-21] MEDS ORDERED: Dextrose 50% Abboject 50 ML SYRINGE IVP PRN (17:37)
[2018-05-21] MEDS ORDERED: Sodium Chloride 0.45% 1,000 ML IV SCH (17:45)
[2018-05-21] MEDS ORDERED: traMADol HCl 50 MG TAB PO SCH (18:00)
[2018-05-21] MEDS ORDERED: Acetaminophen 500 MG TAB PO SCH (18:00)
[2018-05-21] MEDS ORDERED: Ketorolac Tromethamine 30 MG/ML VIAL IVP SCH (18:00)
[2018-05-21] MEDS ORDERED: Promethazine HCl 25 MG/ML VIAL SLOW IVP PRN (19:10)
[2018-05-21] MEDS ORDERED: Promethazine HCl 25 MG/ML VIAL IM PRN (19:10)
--- NOTE | 2018-05-21 19:54 | CON ---
DATE OF CONSULTATION: 05/21/2018 CHIEF COMPLAINT: Right ankle pain. HISTORY OF PRESENT ILLNESS: Ms. Hogan is a 77-year-old female, who slipped this morning at home. Dex beck stepped in a puddle of water, losing her balance, injuring her ankle. She had a fracture dislocati on of the ankle. She presented to the Emergency Department. X-rays were obtained confirming this. She has since had an attempt at reduction with a splint placed. She has received pain control. She is currently resting fairly comfortable. Her is at the bedside. The patient and her live in an . She is very active with a history of multiple back surgeries and chronic pain. She has a long history of narcotic use as well as a recent admission for withdrawal last fall. PAST MEDICAL HISTORY: Chronic pain with chronic narcotic use, although she reports being off all asael cotics currently, history of hypertension, diabetes, COPD, and valvular heart disease. PAST SURGICAL HISTORY: Previous foot surgery, hysterectomy, appendectomy, and 6 lumbar back surgerie s. ALLERGIES: NYQUIL, STADOL, TOFRANIL, and TRAMADOL. SOCIAL HISTORY: The patient has a history of smoking, but no current smoking, alcohol or drug use. REVIEW OF SYSTEMS: Positive for mild right ankle pain, otherwise negative 10-point review of systems . FAMILY MEDICAL HISTORY: Noncontributory. IMAGES: X-rays of the ankle reveal a posteriorly dislocated and fractured ankle with medial malleolu s fracture and comminution as well as lateral malleolus fracture. There is a post-reduction x-ray, h owever, the ankle is still subluxated. PHYSICAL EXAMINATION: VITAL SIGNS: Stable. Patient is afebrile, normotensive, 98% on room air. GENERAL: She is lying supine, alert, in no apparent distress. RESPIRATORY: Breathing comfortably. ABDOMEN: Soft, nontender, nondistended. HEENT: Normocephalic, atraumatic. CARDIOVASCULAR: Pulses palpable and regular. MUSCULOSKELETAL: The patient's right lower extremity is splinted. She is able to flex and extend to es. NEUROLOGICAL: She has 2 second capillary refill. Sensation intact distally. Splint is clean, dry, and intact. Upper extremities and left leg are atraumatic. IMPRESSION: Right ankle fracture dislocation. PLAN: At this point, the patient will need to be admitted to the hospital. She has unstable ankle f racture, which will need treatment. I will plan to take her to the operating room today for open red uction internal fixation to restore anatomic alignment and promote healing. Risks have been reviewed in detail. She has elected to proceed with the operation. She is aware of risk of infection, wound complication, nerve or vascular injury, nonunion, malunion, chronic pain, and others. She should be n.p.o. She will have adequate DVT prophylaxis and antibiotic prophylaxis.
--- NOTE | 2018-05-21 19:56 | HP ---
DATE OF ADMISSION: 05/21/2018 ATTENDING PHYSICIAN: Dr. Ware. TRAUMA ACTIVATION: Not applicable. HISTORY OF PRESENT ILLNESS: This is a 77-year-old female who presented to [place] [facility] status post mechanical fall. Per patient, she was ambulating in her 5th wheel/mobile home when she slipped on th e wet floor coming down some stairs. The patient fell landing on her right side. She had immediate onset of right ankle pain and deformity. EMS was called and she was brought to the emergency room. She was evaluated and found to have a right ankle trimalleolar fracture. Orthopedic Surgery was noti fied and Trauma Services was asked to admit. The patient has a history of chronic back pain with a h istory of hospitalization in September for complications from narcotic use and withdrawal. Since the time of the accident, the patient has received a total of 20 mg of morphine. Upon my evaluation, she is undergoing right ankle reduction. Post-reduction pain is improved. She denies head trauma or lo ss of consciousness during her accident. Other than right ankle pain, she has no new pain or complai nt. ALLERGIES: Patient reports allergies to NYQUIL, STADOL and TOFRANIL. HOME MEDICATIONS: Xanax, clonidine, Paxil, sumatriptan, metformin, Ventolin inhaler, Ultram 50 mg p. r.n. Patient additionally reports taking 3-6 325 mg aspirin daily for pain. CHRONIC MEDICAL ILLNESSES: History of CVA, diabetes, COPD/asthma, chronic back pain, history of prev ious chronic narcotic use. PAST SURGICAL HISTORY: Significant for appendectomy, hysterectomy, bilateral salpingo-oophorectomy, breast implants, bilateral foot surgery, back surgery x6, bladder surgery, pelvic mesh, bilateral magda t surgery, cataract surgery. 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 She is a former smoker. Denies alcohol or illicit drug use. FAMILY HISTORY: Noncontributory in this patient. REVIEW OF SYSTEMS: A 10-point review of systems was performed and negative except as indicated in th e HPI. PHYSICAL EXAMINATION: VITAL SIGNS: Most recent vital signs, blood pressure 141/68, pulse 74, respiration 18, O2 sat 93% on room air, temperature 98.1. GENERAL: Well-developed female in no acute distress. HEAD: Normocephalic and atraumatic. EYES: Pupils are PERRLA. Extraocular movements are intact. NECK: Supple. Trachea is midline. There is no midline tenderness to palpation. CHEST: Atraumatic. No tenderness to palpation. Normal work of breathing, symmetric rise. LUNGS: Clear to auscultation bilaterally. CARDIOVASCULAR: Regular rate and rhythm. No obvious murmurs, rubs or gallops. GASTROINTESTINAL: Abdomen is soft, nontender, nondistended. Bowel sounds are positive. BACK: Exam reported as being within normal limits. MUSCULOSKELETAL: Bilateral upper extremities within normal limits. Left lower extremity within norm al limits. Right lower extremity with obvious deformity and swelling. Post-reduction, patient is ne urovascularly intact distal to the side of her injury. Post-reduction films have been taken. NEUROLOGIC: GCS of 15. No focal deficit is noted. LABORATORY DATA AND IMAGING DATA: WBC 7.4, hemoglobin 13.3, hematocrit 40.2, platelet count 278. So dium 139, potassium 4.2, chloride 106, carbon dioxide 27, BUN 15, creatinine 0.91, glucose 111, AST a nd ALT within normal limits. EKG showed normal sinus rhythm with no evidence of ST depression or jonah vation. RADIOGRAPHIC FINDINGS: Right ankle x-ray showed a trimalleolar fracture. CT of the C-spine was nega tive for acute fracture or dislocation. CT of the brain was negative for acute intracranial abnormal ity. CT of the L-spine was without acute fracture or dislocation. Chest x-ray showed stable cardiom egaly and vascular prominence. ASSESSMENT: 1. Status post mechanical fall. 2. Right trimalleolar fracture. 3. Acute traumatic pain. 4. History of chronic back pain, status post multiple back surgeries. 5. History of chronic obstructive pulmonary disease and asthma. 6. History of diabetes. PLAN: 1. Admit to Trauma Services. 2. Orthopedic Surgery has seen and evaluated the patient. Per my discussion with them, they plan fo r operative intervention later this afternoon. The patient to be n.p.o. with IV analgesia. Postoper atively, once the patient is taking p.o., we will start p.o. analgesics. Postoperative PT and OT. G iven the fact that the patient lives in a fifth wheel travel trailer, ambulation and navigation of [facility] may present a problem. The patient may benefit from inpatient rehabilitation. 3. Deep venous thrombosis and gastritis prophylaxis as appropriate. We will follow up post-reductio n x-ray results. Plan for admission were discussed with the patient and who was at bedside. All questions were answered at the time of this dictation. Trauma attending has been notified of ad mission.
--- NOTE | 2018-05-21 20:23 | RAD ---
THREE INTRAOPERATIVE IMAGES OF THE RIGHT ANKLE: 05/21/2018 HISTORY: Trauma. Injury. FINDINGS: Three intraoperative images demonstrate a screw and plate fixation of the distal tibia and distal fib higinio, associated with the medial and lateral malleoli, respectively. No evidence for hardware failure . There is anatomic alignment of the fracture site. IMPRESSION: Open reduction and internal fixation, as above. POS: [facility]
[2018-05-21] MEDS ORDERED: Famotidine 20 MG TAB PO SCH (21:00)
[2018-05-21] MEDS ORDERED: HumaLOG 300 UNITS/3 ML VIAL SC SCH (21:00)
[2018-05-21] MEDS: Ketorolac Tromethamine 30 MG/ML VIAL IVP SCH ×2 (21:32→23:39)
[2018-05-21] MEDS: traMADol HCl 50 MG TAB PO SCH (21:40)
[2018-05-21] MEDS: Acetaminophen 500 MG TAB PO SCH (21:40)
[2018-05-21 21:52] VITALS: BMI 30.8
[2018-05-21] MEDS: CEFAZOLIN/Water 2 GM/20 ML SYRINGE SLOW IVP SCH (22:22)
--- NOTE | 2018-05-21 23:44 | OP ---
DATE OF OPERATION: 05/21/2018 OPERATION: Open reduction and internal fixation of right bimalleolar ankle fracture. PREOPERATIVE DIAGNOSIS: Displaced right bimalleolar ankle fracture. POSTOPERATIVE DIAGNOSIS: Displaced right bimalleolar ankle fracture. COMPLICATIONS: None. ESTIMATED BLOOD LOSS: Minimal. SURGEON: Zan Herndon MD ANESTHESIA: General plus local. IMPLANTS: Synthes 1/3 tubular plate x2 with multiple nonlocking screws. INDICATIONS: Ms. Hogan is a 77-year-old female who fell. She fractured her ankle. She was indicate d for open reduction and internal fixation to restore stability of the ankle promote healing and prev ent complications of displacement and ankle instability. She is at risk for wound complication, nerv e or vascular injury, post-traumatic arthritis and others. DESCRIPTION OF PROCEDURE: Ms. Hogan was identified in the preoperative holding area. Her correct ex tremity was marked. She was carried to the operating room. She was positioned supine. General anes thesia was induced. A multidisciplinary timeout was performed. The right lower extremity was preppe d and draped in sterile fashion. We began the procedure with incision over the lateral malleolus. We dissected down through the subcu taneous tissues to the fascia, which was opened. We exposed the underlying fibular fracture. We josue ared the bony edges and reduce the fracture into an anatomic position. At this point, a 1/3 tubular plate was placed along the lateral cortex. We placed multiple screws proximally and distally, lockin g the plate to the bone. We achieved stable fixation. We took x-ray images confirming hardware plac ement. There were no complications. At this point, we moved to the medial ankle. We dissected down through the subcutaneous tissues to t he medial malleolus. At this point, we encountered a comminuted vertical shear-type medial malleolar fracture. Again, we reduced the fracture back into its anatomic position. It was in several fragme nts. We held these with K-wire fixation. At this point, we placed a 1/3 tubular buttress-style plat e. This held the large fragment into position. We then placed a 4.0 partially threaded screw into t he small distal medial malleolar fracture fragments. Again, we took images confirming hardware reduc tion and placement. There were no complications. We thoroughly irrigated with copious lavage. We t hen closed with 0 Vicryl suture, 2-0 Vicryl suture, and nylon for the skin. A sterile dressing and a splint was placed. The patient was taken to the recovery room in good condition without complicatio n.
[2018-05-22] MEDS: Acetaminophen 500 MG TAB PO SCH ×4 (03:56→20:43)
[2018-05-22] MEDS: traMADol HCl 50 MG TAB PO SCH ×4 (03:57→20:43)
[2018-05-22] MEDS: Ketorolac Tromethamine 30 MG/ML VIAL IVP SCH (05:47)
[2018-05-22] MEDS: CEFAZOLIN/Water 2 GM/20 ML SYRINGE SLOW IVP SCH (05:48)
[2018-05-22] MEDS ORDERED: Prevnar 13-Val Conj/PF 0.5 ML SYRINGE IM ONE (09:00)
[2018-05-22] MEDS ORDERED: Famotidine/PF 20 mg/2ml Vial SLOW IVP SCH (09:00)
[2018-05-22] MEDS ORDERED: Famotidine 20 MG TAB PO SCH (10:00)
[2018-05-22] MEDS: cloNIDine 0.2 MG TAB PO SCH ×3 (11:24→23:45)
--- NOTE | 2018-05-22 12:25 | PRG-2 ---
DATE OF SERVICE: 05/22/2018 SUBJECTIVE: The patient is a 77-year-old female, status post mechanical fall with a right trimalleol ar fracture. The patient is postop day #1 of open reduction and internal fixation of the right mina leolar ankle fracture by Dr. Herndon. The patient does report a longstanding history of chronic pa in syndrome where she does take an extended amount of narcotics at home without good pain control in the hospital. The patient states that she would like to have her pain regimen increased from tramado l up to O'Brien; however, the Trauma team will be putting her on our pain protocol and she is in agreem ent with this plan. No other complaints this morning. OBJECTIVE: VITAL SIGNS: BP 182/95, temperature 98.0, pulse 94, respirations 16, oxygen saturation 95% on room a ir. GENERAL: Elderly female in no acute distress, lying comfortably in bed. HEAD: Normocephalic, atraumatic. NECK: Trachea is midline. Supple. RESPIRATORY: Clear to auscultation bilaterally. No wheezing. CARDIOVASCULAR: Regular rate and rhythm. No murmurs. GASTROINTESTINAL: Soft, nontender, nondistended. Bowel sounds are present. MUSCULOSKELETAL: Right lower extremity bandaged, clean, dry, and intact. She does move all 4 extrem ities. NEUROLOGIC: GCS 15. No focal deficits noted. LABORATORY DATA: No laboratory values of today. ASSESSMENT: 1. Status post mechanical fall. 2. Right trimalleolar fracture, status post open reduction and internal fixation, postoperative day #1. 3. Acute traumatic pain. 4. History of chronic back pain, status post multiple back surgeries. 5. History of chronic obstructive pulmonary disease and asthma, not in acute exacerbation. 6. History of diabetes. PLAN: The patient did continue to complain of excessive pain, so her pain regimen has been increased today. Patient will continue to work with PT and OT, to continue to regain her strength and functio nality. Patient has had elevated blood pressures while in the hospital that may be pointing to a com ponent of pain. We will initiate clonidine as part of her pain regimen and so no further blood press ure medication changes will be initiated at this time. We will continue all other supportive care an d continue managing her chronic illnesses. This patient was seen and evaluated with Dr. Ware, the [facility] attending, and he is in agreement with this plan.
[2018-05-22] MEDS: Ibuprofen 800 MG TAB PO SCH ×2 (14:05→20:43)
[2018-05-22] MEDS ORDERED: PROVENTIL INHALER 6.7 G (200 INHALATIONS) INH PRN (20:24)
[2018-05-22] MEDS ORDERED: metFORMIN 500 MG TAB PO SCH (21:00)
[2018-05-23] MEDS: Acetaminophen 500 MG TAB PO SCH (02:12)
[2018-05-23] MEDS: traMADol HCl 50 MG TAB PO SCH ×4 (02:12→21:48)
[2018-05-23] MEDS: cloNIDine 0.2 MG TAB PO SCH ×3 (06:36→17:25)
[2018-05-23] MEDS: Ibuprofen 800 MG TAB PO SCH ×3 (06:36→21:47)
[2018-05-23] MEDS ORDERED: HYDROcodone/Acetaminophen 5/325 mg Tablet PO PRN (07:58)
[2018-05-23 08:31] LABS: #Lymphocytes 1.6 thou/uL (1.20-3.40); #Monocytes 0.4 thou/uL (0.11-0.59); #Neutrophils 6.9 thou/uL (1.40-6.50); %Basophils 0.4 % (0.0-1.0); %Eosinophils 0.3 % (0.0-10.0); %Lymphocytes 18.2 % (21.0-51.0); %Monocytes 4.5 % (0.0-10.0); %Neutrophils 76.7 % (42.0-75.0); Hemoglobin 10.9 g/dL (12.0-16.0); Mean Corpuscular HGB CONC 32.4 g/dL (32.0-36.0); Mean Corpuscular Hemoglobin 28.6 pg (27.0-31.0); Mean Corpuscular Volume 88.3 fL (78.0-98.0); Mean Platelet Volume 8.2 fL (7.4-10.4); Platelet Count 250 thou/uL (130-400); RBC Distribution Width 13.5 % (11.5-14.5); Red Blood Cell (RBC) Count 3.82 mill/uL (4.20-5.40)
[2018-05-23 08:44] LABS: Anion Gap 8 mmol/L (10-20); BUN (Urea Nitrogen) 19 mg/dL (9.8-20.1); Calc. Creatinine Clearance 74 mL/min (70-130); Calcium 8.6 mg/dL (7.8-10.44); Carbon Dioxide 30 mmol/L (23-31); Chloride 104 mmol/L (98-107); Estimated GFR-MDRD 66; Glucose 155 mg/dL (83-110); Magnesium 2.1 mg/dL (1.6-2.6); Phosphorus 2.8 mg/dL (2.3-4.7); Potassium 4.2 mmol/L (3.5-5.1); Sodium 138 mmol/L (136-145)
[2018-05-23] MEDS ORDERED: Famotidine 20 MG TAB PO SCH (09:00)
[2018-05-23] MEDS: Famotidine 20 MG TAB PO SCH (09:20)
[2018-05-23] MEDS: PARoxetine 20 MG TAB PO SCH (09:20)
[2018-05-23] MEDS: Aspirin 81 mg Enteric Coated Tablet PO SCH ×2 (09:20→21:48)
[2018-05-23] MEDS: Polyethylene Glycol 3350 17 GM Packet PO SCH ×2 (09:21→09:28)
[2018-05-23] MEDS: Senokot S 8.6-50 MG TAB PO SCH ×3 (09:23→21:49)
--- NOTE | 2018-05-23 13:12 | PRG-2 ---
DATE OF SERVICE: 05/23/2018 SUBJECTIVE: The patient is a 77-year-old female status post mechanical fall with right trimalleolar fracture. The patient is postop day #2 of open reduction and internal fixation of the right trimalle olar ankle fracture by Dr. Herndon. Patient had her pain regimen increased by Orthopedics with the initiation of Biddle with better pain control this morning. The patient did have an exacerbation of acute pain last night and was given 2 mg of morphine. No other complaints are present this morning. OBJECTIVE: VITAL SIGNS: BP 129/75, temperature 97.7, pulse was 67, respirations 16, oxygen saturation 94% on ro om air. GENERAL: She is an alert female in no acute distress, lying comfortably in bed. HEAD: Normocephalic, atraumatic. NECK: Trachea is midline and supple. RESPIRATORY: Clear to auscultation bilaterally. No wheezing. CARDIOVASCULAR: Regular rate and rhythm, no murmurs. GASTROINTESTINAL: Soft, nontender and nondistended. Bowel sounds are present. MUSCULOSKELETAL: Has a right lower extremity bandage, it is clean, dry, and intact. Moves all 4 ext remities. NEUROLOGIC: GCS 15. No focal deficits noted. LABORATORY DATA: Hemoglobin 10.9, hematocrit 33.7, white blood cell count 9.0, platelet count 250. Sodium 138, potassium 4.2, chloride 104, bicarbonate 30, BUN 19, creatinine 0.83, glucose 155, phosph orus 2.8 and magnesium 2.1. ASSESSMENT: 1. Status post mechanical fall. 2. Right trimalleolar fracture status post open reduction and internal fixation, postoperative day # 2. 3. Acute traumatic pain. 4. History of chronic back pain, status post multiple back surgeries. 5. History of chronic obstructive pulmonary disease and asthma, not in acute exacerbation. 6. History of diabetes. PLAN: The patient states she has had better pain control. We will continue our current pain regimen as well as allow Orthopedics to manage her Biddle use. The patient will continue to work with PT and OT to continue to regain her strength and functionality. Blood pressure has been better controlled today. The patient has had the outsole caser working on her placement to a care home facility of [place] in [place] and hopefully something will be determined for placement tomorrow. We wi ll continue all other supportive care and continue managing her chronic illnesses. All other questio ns were answered at the time of this dictation. This patient was seen and evaluated with Dr. Ware, the trauma attending and he is in agreement with this plan.
[2018-05-24] MEDS: cloNIDine 0.2 MG TAB PO SCH ×3 (00:28→12:08)
[2018-05-24] MEDS: HYDROcodone/Acetaminophen 5/325 mg Tablet PO PRN ×2 (00:33→10:37)
[2018-05-24] MEDS: traMADol HCl 50 MG TAB PO SCH ×3 (03:48→14:41)
[2018-05-24] MEDS: Ibuprofen 800 MG TAB PO SCH ×2 (06:28→14:08)
[2018-05-24] MEDS: Polyethylene Glycol 3350 17 GM Packet PO SCH (08:17)
[2018-05-24] MEDS: Famotidine 20 MG TAB PO SCH (08:18)
[2018-05-24] MEDS: Senokot S 8.6-50 MG TAB PO SCH (08:18)
[2018-05-24] MEDS: PARoxetine 20 MG TAB PO SCH (08:18)
[2018-05-24] MEDS: Aspirin 81 mg Enteric Coated Tablet PO SCH (08:18)
[2018-05-24 15:15] VITALS: BP 146/74; TEMP 97.8
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
--- NOTE | 2018-05-26 12:37 | EKG ---
Test Reason : Blood Pressure : / mmHG Vent. Rate : 069 BPM Atrial Rate : 069 BPM P-R Int : 186 ms QRS Dur : 080 ms QT Int : 416 ms P-R-T Axes : 082 027 066 degrees QTc Int : 445 ms Normal sinus rhythm Normal ECG Confirmed by KIKI QUESADA M.D. ([id number]), editor & co founder DANIE GODINEZ ([id number]) on 05/26/2018 12:36:52 PM Referred By: Confirmed By:KIKI QUESADA M.D.
== END 2018-05-24 15:17 | DRG 494 ==
LOC: ERS 11:20 → SURG A 14:29 → ERS 15:43
PROVIDERS: ADMIT Surgery; ATTEND Surgery
PROC: 0QSG04Z Reposition Right Tibia with Internal Fixation Device, Open Approach (ICD-10-PCS; principal; 2018-05-21)
DX: S82.841A Displaced bimalleolar fracture of right lower leg, initial encounter for closed fracture (principal); E11.9 Type 2 diabetes mellitus without complications; J44.9 Chronic obstructive pulmonary disease, unspecified; G89.29 Other chronic pain; G89.11 Acute pain due to trauma; Z98.1 Arthrodesis status; Z87.891 Personal history of nicotine dependence; Z86.73 Personal history of transient ischemic attack (TIA), and cerebral infarction without residual deficits; Z79.84 Long term (current) use of oral hypoglycemic drugs; W10.8XXA Fall (on) (from) other stairs and steps, initial encounter; Y92.89 Other specified places as the place of occurrence of the external cause
CPT/HCPCS: 27818; 36415; 36416; 70450; 71045; 72125; 72131; 76001; 80048; 80053; 83735; 84100; 85025; 90471; 90670; 93005; 96361; 96374; C1713; G0009; G0390; G8978-GP-CM; G8979-GP-CK; G8987-GO-CK; G8988-GO-CI; J1100; J1885; J2001; J2270; J2405; J2704

== ENCOUNTER 2018-06-12 09:24 | Emergency (ER) | payer MEDICARE, OTHER ==
[2018-06-12] MEDS ORDERED: Lidocaine 1% w/Epinephrine 1:100K 20 ML VIAL ONE (09:28)
[2018-06-12] MEDS ORDERED: Morphine 4 MG/ML VIAL ONE (09:28)
--- NOTE | 2018-06-12 10:20 | CT ---
CT HEAD NONCONTRAST: Indication: Post-traumatic head injury, fall with pain. FINDINGS: There is no evidence of intracranial hemorrhage, mass effect, or midline shift. Ventricular system is age appropriate in size. There is mild chronic microvascular ischemic disease. There is no depressed calvarial fracture or pneumocephalus. IMPRESSION: 1. No acute intracranial hemorrhage or mass effect. 2. Mild chronic microvascular ischemic disease. POS: [facility]
== END 2018-06-12 11:23 | disposition home or self-care (01) ==
LOC: ERS 09:24
DX: S01.01XA Laceration without foreign body of scalp, initial encounter (principal); E11.9 Type 2 diabetes mellitus without complications; I10 Essential (primary) hypertension; F41.9 Anxiety disorder, unspecified; Z79.899 Other long term (current) drug therapy; Z79.84 Long term (current) use of oral hypoglycemic drugs; W18.09XA Striking against other object with subsequent fall, initial encounter
CPT/HCPCS: 12002; 70450; 96374; J2001; J2270

== ENCOUNTER 2021-02-24 14:20 | Outpatient (CLI) | payer MEDICARE, MEDICAID ==
[2021-02-24 17:35] LABS: Hemoglobin 12.7 g/dL (12.0-15.5); Mean Corpuscular HGB CONC 31.5 g/dL (32.0-36.0); Mean Corpuscular Hemoglobin 28.4 pg (27.0-33.0); Mean Corpuscular Volume 90.2 fl (81.6-98.3); Mean Platelet Volume 10.3 fl (7.4-10.4); Platelet Count 320 10x3/uL (150-450); RBC Distribution Width 14.1 % (11.5-14.5); Red Blood Cell (RBC) Count 4.47 10x6/uL (3.90-5.03); White Blood Cell (WBC) Count 7.7 10x3/uL (3.5-10.5)
[2021-02-24 17:56] LABS: Anion Gap 14 mmol/L (10-20); BUN (Urea Nitrogen) 15 mg/dL (9.8-20.1); Calc. Creatinine Clearance 0 mL/min (70-130); Calcium 8.7 mg/dL (7.8-10.44); Carbon Dioxide 27 mmol/L (23-31); Chloride 102 mmol/L (98-107); Glucose 88 mg/dL (83-110); Potassium 3.8 mmol/L (3.5-5.1)
[2021-02-24 18:05] LABS: Sodium 139 mmol/L (136-145)
[2021-02-25 02:32] LABS: SARS-CoV-2 PCR by NAA Not Detected (NotDetected)
== END 2021-02-24 14:21 | disposition home or self-care (01) ==
LOC: LABBT 14:20
PROVIDERS: ATTEND Plastic Surgery
DX: Z01.818 Encounter for other preprocedural examination (principal); Z20.822 Contact with and (suspected) exposure to COVID-19
CPT/HCPCS: 80048; 85027; 93005; U0003; U0005; 87635; 93010

== ENCOUNTER 2021-03-01 09:43 | Day surgery (SDC) | payer MEDICARE, MEDICAID ==
[2021-02-25 10:23] VITALS: BMI 30.1
[2021-03-01] MEDS ORDERED: Heparin 5,000 UNITS/ML VIAL ONE (10:40)
[2021-03-01] MEDS ORDERED: Fentanyl 100 MCG/2 ML VIAL ONE ×3 (12:10→14:02)
[2021-03-01] MEDS ORDERED: Bupivacaine 0.25% HCL 30 ML VIAL ONE (12:13)
[2021-03-01] MEDS ORDERED: EPINEPHrine 1 MG/ML AMP ONE (12:13)
[2021-03-01] MEDS ORDERED: Bacitracin Zinc Ointment 30 gm TUBE ONE (12:13)
[2021-03-01] MEDS ORDERED: Lidocaine 1% PF 5 ML VIAL ONE (12:39)
[2021-03-01] MEDS ORDERED: Rocuronium Bromide 10 MG/ML (10ML VIAL) ONE (12:39)
[2021-03-01] MEDS ORDERED: Dexamethasone 20 MG/5 ML VIAL ONE (12:39)
[2021-03-01] MEDS ORDERED: Glycopyrrolate 0.2 MG/ML 5 ML SYRINGE ONE (12:39)
[2021-03-01] MEDS ORDERED: ePHEDrine 50 MG/ML VIAL ONE (12:39)
[2021-03-01] MEDS ORDERED: PROPOFOL 200 MG/20 ML VIAL ONE (12:39)
[2021-03-01] MEDS ORDERED: Ondansetron PF 4 MG/2 ML Vial ONE (12:39)
[2021-03-01] MEDS ORDERED: Lorazepam 2 MG/ML VIAL SLOW IVP SCH (14:00)
[2021-03-01] MEDS ORDERED: HYDROmorphone 0.5 MG/0.5 ML SYRINGE ONE (14:17)
[2021-03-01] MEDS ORDERED: Morphine 4 MG/ML VIAL ONE ×3 (14:26→14:53)
[2021-03-01] MEDS ORDERED: Lorazepam 2 MG/ML VIAL ONE (14:39)
[2021-03-01] MEDS ORDERED: Non-Formulary Medication 1 EACH PO PRN (15:13)
[2021-03-01] MEDS ORDERED: PACU-Morphine 4MG/ML VIAL SLOW IVP PRN (15:15)
[2021-03-01] MEDS ORDERED: Ondansetron HCl/PF 4 MG/2 ML Vial IVP PRN (15:15)
[2021-03-01] MEDS ORDERED: Promethazine HCl 25 MG/ML VIAL IM/IV PRN (15:15)
[2021-03-01] MEDS ORDERED: HYDROmorphone 2 MG/ML VIAL SLOW IVP PRN (15:15)
[2021-03-01] MEDS ORDERED: Morphine Sulfate 2 MG/ML SYRINGE SLOW IVP PRN (15:15)
[2021-03-01] MEDS ORDERED: HYDROcodone/Acetaminophen 5/325 mg Tablet ONE (16:02)
== END 2021-03-01 17:08 | disposition home or self-care (01) ==
LOC: SDC 09:43
PROVIDERS: ATTEND Plastic Surgery
PROC: 0HX7XZZ Transfer Abdomen Skin, External Approach (ICD-10-PCS; principal; 2021-03-01)
DX: C44.529 Squamous cell carcinoma of skin of other part of trunk (principal); I10 Essential (primary) hypertension; G40.909 Epilepsy, unspecified, not intractable, without status epilepticus; M19.90 Unspecified osteoarthritis, unspecified site; D64.9 Anemia, unspecified; Z79.899 Other long term (current) drug therapy; Z88.5 Allergy status to narcotic agent; Z88.8 Allergy status to other drugs, medicaments and biological substances
CPT/HCPCS: 88305; 88331; 88332; J0171; J0690; J1100; J1170; J1644; J2060; J2270; J2405; J2704; J3010; J3490; S0020

== ENCOUNTER 2021-08-25 14:30 | Outpatient (CLI) | payer MEDICARE, MEDICAID | END 2021-08-25 14:31 | disposition home or self-care (01) | LOC: SCSRAD 14:30 | PROVIDERS: ATTEND Family Medicine | DX: Z78.0 Asymptomatic menopausal state (principal); M19.071 Primary osteoarthritis, right ankle and foot; M79.89 Other specified soft tissue disorders; Z98.890 Other specified postprocedural states; W19.XXXS Unspecified fall, sequela ==

== ENCOUNTER 2023-01-14 15:20 | Inpatient (IN) | payer OTHER, MEDICAID ==
[2023-01-14] MEDS ORDERED: TETANUS, DIPHTHERIA TOX,ADULT (TDVAX) 0.5 ML VIAL IM ONE (16:31)
[2023-01-14] MEDS ORDERED: Dextrose 50% Abboject 50 ML SYRINGE SLOW IVP PRN (16:31)
[2023-01-14] MEDS ORDERED: Ondansetron PF 4 MG/2 ML Vial IVP PRN ×2 (16:31→16:37)
[2023-01-14] MEDS ORDERED: Dextrose 5% in Water 1,000 ML IV PRN (16:31)
[2023-01-14] MEDS ORDERED: Ondansetron ODT 4 MG TAB PO PRN (16:31)
[2023-01-14] MEDS ORDERED: Lorazepam 2 MG/ML VIAL SLOW IVP SCH (16:45)
[2023-01-14 18:03] LABS: Acetaminophen Less than 10.0 mcg/mL (10.0-30.0); Salicylate Less than 8.0 mg/dL (15.0-30.0)
[2023-01-14] MEDS: Lactated Ringer's 1,000 ML IV SCH (18:14)
[2023-01-14] MEDS ORDERED: VANCOMYCIN 1.75 GM/500 ML BAG 1.75 GM in Premix Bag 1 BAG IVPB SCH (18:30)
[2023-01-14] MEDS ORDERED: Metoprolol Tartrate 5 MG/5 ML VIAL IVP SCH ×2 (19:15→22:30)
[2023-01-14] MEDS ORDERED: Vancomycin HCl 750 MG in Sodium Chloride 0.9% 250 ML 250 ML IVPB SCH (19:45)
[2023-01-14 20:30] LABS: Legionella Urinary Ag Negative (Negative)
[2023-01-14] MEDS ORDERED: Cefepime 1 GM in Sodium Chloride 0.9% 100 ML IVPB SCH (21:00)
[2023-01-14] MEDS ORDERED: Vancomycin HCl 1 GM in Sodium Chloride 0.9% 250 ML 300 ML IVPB SCH (21:00)
[2023-01-14 21:37] LABS: Strep pneumo Urine Ag NEGATIVE (NEGATIVE)
[2023-01-14] MEDS: Famotidine/PF 20 mg/2ml Vial SLOW IVP SCH (21:55)
[2023-01-14] MEDS: Cefepime 1 GM in Sodium Chloride 0.9% 100 ML IVPB SCH (21:55)
[2023-01-14] MEDS: Labetalol HCl 100 MG/20 ML VIAL SLOW IVP PRN (22:00)
[2023-01-15] MEDS ORDERED: Acetaminophen 650 MG Suppository PR PRN (00:10)
[2023-01-15 05:39] LABS: #Eosinphils 0.1 thou/uL (0.0-0.7); #Monocytes 0.4 thou/uL (0.11-0.59); #Neutrophils 7.5 thou/uL (1.40-6.50); %Basophils 0.2 % (0.0-1.0); %Eosinophils 1.6 % (0.0-10.0); %Lymphocytes 10.7 % (21.0-51.0); %Monocytes 4.8 % (0.0-10.0); %Neutrophils 82.7 % (42.0-75.0); Hemoglobin 12.1 g/dL (12.0-16.0); Mean Corpuscular HGB CONC 31.8 g/dL (32.0-36.0); Mean Corpuscular Hemoglobin 27.9 pg (27.0-31.0); Mean Corpuscular Volume 87.6 fl (78.0-98.0); Mean Platelet Volume 9.2 fL (7.4-10.4); Platelet Count 221 10x3/uL (130-400); RBC Distribution Width 14.2 % (11.5-14.5); Red Blood Cell (RBC) Count 4.34 mill/uL (4.20-5.40); White Blood Cell (WBC) Count 9.1 10x3/uL (4.8-10.8)
[2023-01-15 05:42] LABS: Anion Gap 13 mmol/L (10-20); BUN (Urea Nitrogen) 13 mg/dL (9.8-20.1); Calc. Creatinine Clearance 65 mL/min (70-130); Calcium 8.2 mg/dL (7.8-10.44); Carbon Dioxide 23 mmol/L (23-31); Chloride 107 mmol/L (98-107); Estimated GFR 84; Glucose 117 mg/dL (83-110); Magnesium 1.6 mg/dL (1.6-2.6); Phosphorus 2.4 mg/dL (2.3-4.7); Potassium 3.2 mmol/L (3.5-5.1); Sodium 140 mmol/L (136-145)
[2023-01-15] MEDS ORDERED: Vancomycin HCl 750 MG in Sodium Chloride 0.9% 250 ML 250 ML IVPB SCH (06:00)
[2023-01-15] MEDS ORDERED: Magnesium 2 GM/50 ML(in water) 2 GM in Premix Bag 1 BAG IVPB SCH (08:15)
[2023-01-15] MEDS: Thiamine 100 MG TAB PO SCH (08:58)
[2023-01-15] MEDS: Famotidine/PF 20 mg/2ml Vial SLOW IVP SCH ×2 (08:58→20:33)
[2023-01-15] MEDS: Cefepime 1 GM in Sodium Chloride 0.9% 100 ML IVPB SCH ×2 (08:58→20:33)
[2023-01-15] MEDS: Folic Acid 1 MG TAB PO SCH (08:58)
[2023-01-15] MEDS: Lactated Ringer's 1,000 ML IV SCH (08:59)
[2023-01-15] MEDS: Potassium Chloride 20 MEQ in Premix Bag 1 BAG IVPB SCH ×2 (08:59→11:50)
[2023-01-15] MEDS: Metoprolol Tartrate 25 MG TAB PO SCH ×2 (08:59→20:39)
[2023-01-15] MEDS ORDERED: Amlodipine 5 MG TAB PO SCH (09:00)
[2023-01-15] MEDS: Labetalol HCl 100 MG/20 ML VIAL SLOW IVP PRN (09:00)
[2023-01-15] MEDS: Acetaminophen 325 MG TAB PO PRN (11:50)
[2023-01-15] MEDS: Ibuprofen 200 MG TAB PO SCH ×2 (13:51→20:39)
[2023-01-16] MEDS: Ibuprofen 200 MG TAB PO SCH ×3 (04:23→21:13)
[2023-01-16 04:24] LABS: #Eosinphils 0.8 thou/uL (0.0-0.7); #Lymphocytes 1.2 thou/uL (1.20-3.40); #Monocytes 0.5 thou/uL (0.11-0.59); #Neutrophils 6.8 thou/uL (1.40-6.50); %Basophils 0.4 % (0.0-1.0); %Eosinophils 8.6 % (0.0-10.0); %Monocytes 5.3 % (0.0-10.0); %Neutrophils 72.7 % (42.0-75.0); Hemoglobin 12.3 g/dL (12.0-16.0); Mean Corpuscular HGB CONC 32.5 g/dL (32.0-36.0); Mean Corpuscular Hemoglobin 28.3 pg (27.0-31.0); Mean Corpuscular Volume 87.3 fl (78.0-98.0); Mean Platelet Volume 8.8 fL (7.4-10.4); Platelet Count 187 10x3/uL (130-400); RBC Distribution Width 14.4 % (11.5-14.5); Red Blood Cell (RBC) Count 4.32 mill/uL (4.20-5.40); White Blood Cell (WBC) Count 9.3 10x3/uL (4.8-10.8)
[2023-01-16 04:47] LABS: Anion Gap 7 mmol/L (10-20); BUN (Urea Nitrogen) 12 mg/dL (9.8-20.1); Calc. Creatinine Clearance 67 mL/min (70-130); Calcium 8.6 mg/dL (7.8-10.44); Carbon Dioxide 26 mmol/L (23-31); Chloride 107 mmol/L (98-107); Estimated GFR 86; Glucose 106 mg/dL (83-110); Magnesium 1.9 mg/dL (1.6-2.6); Potassium 3.1 mmol/L (3.5-5.1); Sodium 137 mmol/L (136-145)
[2023-01-16 07:26] LABS: Vancomycin, Trough 4.5 ug/mL
[2023-01-16] MEDS ORDERED: Magnesium 2 GM/50 ML(in water) 1 GM in Premix Bag 1 BAG IVPB SCH (08:15)
[2023-01-16] MEDS ORDERED: Potassium Chloride 20 MEQ/100 ML PREMIX BAG IVPB SCH (08:15)
[2023-01-16] MEDS ORDERED: Potassium Chloride 20 MEQ TAB PO SCH (08:15)
[2023-01-16] MEDS: Cefepime 1 GM in Sodium Chloride 0.9% 100 ML IVPB SCH ×2 (10:02→21:14)
[2023-01-16] MEDS ORDERED: Morphine 2 MG/ML VIAL SLOW IVP PRN (10:02)
[2023-01-16] MEDS: Metoprolol Tartrate 25 MG TAB PO SCH ×3 (10:02→21:14)
[2023-01-16] MEDS: Folic Acid 1 MG TAB PO SCH (10:02)
[2023-01-16] MEDS: Thiamine 100 MG TAB PO SCH (10:02)
[2023-01-16] MEDS: Famotidine 20 MG TAB PO SCH ×2 (10:02→21:14)
[2023-01-16] MEDS: traMADol HCl 50 MG TAB PO PRN (10:06)
[2023-01-16] MEDS: Labetalol HCl 100 MG/20 ML VIAL SLOW IVP PRN (10:07)
[2023-01-16] MEDS: HYDROcodone/Acetaminophen 5/325 mg Tablet PO PRN (14:52)
[2023-01-17] MEDS: Metoprolol Tartrate 25 MG TAB PO SCH ×3 (04:46→20:50)
[2023-01-17] MEDS: Ibuprofen 200 MG TAB PO SCH ×2 (04:47→12:16)
[2023-01-17 07:12] LABS: Anion Gap 13 mmol/L (10-20); BUN (Urea Nitrogen) 18 mg/dL (9.8-20.1); Calc. Creatinine Clearance 57 mL/min (70-130); Calcium 8.9 mg/dL (7.8-10.44); Carbon Dioxide 24 mmol/L (23-31); Chloride 104 mmol/L (98-107); Estimated GFR 73; Glucose 112 mg/dL (83-110); Magnesium 2.4 mg/dL (1.6-2.6); Phosphorus 3.1 mg/dL (2.3-4.7); Potassium 3.9 mmol/L (3.5-5.1); Sodium 137 mmol/L (136-145)
[2023-01-17] MEDS: Cefepime 1 GM in Sodium Chloride 0.9% 100 ML IVPB SCH (08:23)
[2023-01-17] MEDS: Polyethylene Glycol 3350 17 GM Packet PO SCH (08:24)
[2023-01-17] MEDS: Famotidine 20 MG TAB PO SCH ×2 (08:24→20:50)
[2023-01-17] MEDS: Thiamine 100 MG TAB PO SCH (08:24)
[2023-01-17] MEDS: Folic Acid 1 MG TAB PO SCH (08:24)
[2023-01-17] MEDS: Labetalol HCl 100 MG/20 ML VIAL SLOW IVP PRN (12:16)
[2023-01-17] MEDS: HYDROcodone/Acetaminophen 5/325 mg Tablet PO PRN ×2 (15:37→20:50)
[2023-01-17] MEDS: hydrALAZINE 20 MG/ML VIAL SLOW IVP PRN (16:12)
[2023-01-17] MEDS: traMADol HCl 50 MG TAB PO PRN (22:53)
[2023-01-18] MEDS: Folic Acid 1 MG TAB PO SCH (07:52)
[2023-01-18] MEDS: Metoprolol Tartrate 25 MG TAB PO SCH ×5 (07:52→20:32)
[2023-01-18] MEDS: Thiamine 100 MG TAB PO SCH (07:52)
[2023-01-18] MEDS: Famotidine 20 MG TAB PO SCH ×2 (07:52→20:32)
[2023-01-18] MEDS: Polyethylene Glycol 3350 17 GM Packet PO SCH (07:53)
[2023-01-18] MEDS: hydrALAZINE 20 MG/ML VIAL SLOW IVP PRN (10:31)
[2023-01-18] MEDS: Acetaminophen 325 MG TAB PO PRN (16:54)
[2023-01-18] MEDS: Labetalol HCl 100 MG/20 ML VIAL SLOW IVP PRN (20:38)
[2023-01-19] MEDS ORDERED: Metoprolol Tartrate 25 MG TAB PO SCH (08:27)
[2023-01-19] MEDS: Metoprolol Tartrate 50 MG TAB PO SCH ×4 (08:42→20:31)
[2023-01-19] MEDS: Folic Acid 1 MG TAB PO SCH (08:42)
[2023-01-19] MEDS: Thiamine 100 MG TAB PO SCH (08:42)
[2023-01-19] MEDS: Polyethylene Glycol 3350 17 GM Packet PO SCH (08:43)
[2023-01-19] MEDS: Famotidine 20 MG TAB PO SCH ×2 (08:43→20:31)
[2023-01-19] MEDS: Melatonin 3 MG TAB PO SCH (20:31)
[2023-01-19] MEDS: Acetaminophen 325 MG TAB PO PRN (20:31)
[2023-01-20] MEDS: Labetalol HCl 100 MG/20 ML VIAL SLOW IVP PRN ×2 (05:08→09:49)
[2023-01-20] MEDS: Metoprolol Tartrate 50 MG TAB PO SCH ×4 (08:21→22:10)
[2023-01-20] MEDS: Acetaminophen 325 MG TAB PO PRN (08:21)
[2023-01-20] MEDS: Polyethylene Glycol 3350 17 GM Packet PO SCH (08:21)
[2023-01-20] MEDS: Famotidine 20 MG TAB PO SCH ×2 (08:21→22:10)
[2023-01-20] MEDS: Folic Acid 1 MG TAB PO SCH (08:21)
[2023-01-20] MEDS: Thiamine 100 MG TAB PO SCH (08:21)
[2023-01-20] MEDS: Melatonin 3 MG TAB PO SCH (22:10)
[2023-01-20] MEDS: hydrALAZINE 20 MG/ML VIAL SLOW IVP PRN (22:15)
[2023-01-21] MEDS: hydrALAZINE 20 MG/ML VIAL SLOW IVP PRN ×2 (05:22→23:35)
[2023-01-21] MEDS: Famotidine 20 MG TAB PO SCH ×2 (09:53→19:46)
[2023-01-21] MEDS: Polyethylene Glycol 3350 17 GM Packet PO SCH (09:53)
[2023-01-21] MEDS: Acetaminophen 325 MG TAB PO PRN ×2 (09:53→19:46)
[2023-01-21] MEDS: Thiamine 100 MG TAB PO SCH (09:54)
[2023-01-21] MEDS: Folic Acid 1 MG TAB PO SCH (09:54)
[2023-01-21] MEDS: Metoprolol Tartrate 50 MG TAB PO SCH ×4 (09:54→19:46)
[2023-01-21] MEDS: Melatonin 3 MG TAB PO SCH (19:45)
[2023-01-22] MEDS: Acetaminophen 325 MG TAB PO PRN (01:50)
[2023-01-22] MEDS: Famotidine 20 MG TAB PO SCH ×2 (09:52→20:25)
[2023-01-22] MEDS: Folic Acid 1 MG TAB PO SCH (09:52)
[2023-01-22] MEDS: Polyethylene Glycol 3350 17 GM Packet PO SCH (09:52)
[2023-01-22] MEDS: Thiamine 100 MG TAB PO SCH (09:52)
[2023-01-22] MEDS: Metoprolol Tartrate 50 MG TAB PO SCH ×4 (09:52→20:25)
[2023-01-22] MEDS: hydrALAZINE 20 MG/ML VIAL SLOW IVP PRN (13:44)
[2023-01-22] MEDS: Melatonin 3 MG TAB PO SCH (20:25)
[2023-01-22] MEDS: Labetalol HCl 100 MG/20 ML VIAL SLOW IVP PRN (23:45)
[2023-01-23] MEDS: Acetaminophen 325 MG TAB PO PRN (00:40)
[2023-01-23] MEDS: hydrALAZINE 20 MG/ML VIAL SLOW IVP PRN ×2 (00:41→04:27)
[2023-01-23] MEDS: Famotidine 20 MG TAB PO SCH ×2 (08:51→20:51)
[2023-01-23] MEDS: Thiamine 100 MG TAB PO SCH (08:51)
[2023-01-23] MEDS: Folic Acid 1 MG TAB PO SCH (08:51)
[2023-01-23] MEDS: Metoprolol Tartrate 50 MG TAB PO SCH (08:51)
[2023-01-23] MEDS: Polyethylene Glycol 3350 17 GM Packet PO SCH (08:52)
[2023-01-23] MEDS ORDERED: Metoprolol Tartrate 50 MG TAB PO SCH (09:00)
[2023-01-23] MEDS: Metoprolol Tartrate 100 MG TAB PO SCH ×2 (10:02→20:50)
[2023-01-23] MEDS: Sodium Chloride 0.65% Nasal 44 ML BOT EA NARE SCH ×2 (11:51→20:51)
[2023-01-23] MEDS: Melatonin 3 MG TAB PO SCH (20:50)
[2023-01-23] MEDS: Labetalol HCl 100 MG/20 ML VIAL SLOW IVP PRN (20:50)
[2023-01-24] MEDS: Sodium Chloride 0.65% Nasal 44 ML BOT EA NARE SCH ×3 (08:25→20:29)
[2023-01-24] MEDS: Acetaminophen 325 MG TAB PO PRN ×2 (08:26→18:47)
[2023-01-24] MEDS: Folic Acid 1 MG TAB PO SCH (08:26)
[2023-01-24] MEDS: Polyethylene Glycol 3350 17 GM Packet PO SCH (08:26)
[2023-01-24] MEDS: Metoprolol Tartrate 100 MG TAB PO SCH ×2 (08:26→20:29)
[2023-01-24] MEDS: Thiamine 100 MG TAB PO SCH (08:26)
[2023-01-24] MEDS: Famotidine 20 MG TAB PO SCH ×2 (08:26→20:28)
[2023-01-24] MEDS: Amlodipine 5 MG TAB PO SCH (11:07)
[2023-01-24 11:17] LABS: #Eosinphils 0.1 thou/uL (0.0-0.7); #Monocytes 0.4 thou/uL (0.11-0.59); #Neutrophils 8.2 thou/uL (1.40-6.50); %Basophils 0.1 % (0.0-1.0); %Eosinophils 0.6 % (0.0-10.0); %Lymphocytes 10.2 % (21.0-51.0); %Monocytes 4.5 % (0.0-10.0); %Neutrophils 84.7 % (42.0-75.0); Hemoglobin 13.9 g/dL (12.0-16.0); Mean Corpuscular HGB CONC 31.4 g/dL (32.0-36.0); Mean Corpuscular Hemoglobin 27.9 pg (27.0-31.0); Mean Corpuscular Volume 88.8 fl (78.0-98.0); Mean Platelet Volume 8.2 fL (7.4-10.4); Platelet Count 344 10x3/uL (130-400); RBC Distribution Width 16.6 % (11.5-14.5); Red Blood Cell (RBC) Count 4.97 mill/uL (4.20-5.40); White Blood Cell (WBC) Count 9.7 10x3/uL (4.8-10.8)
[2023-01-24 11:36] LABS: Anion Gap 13 mmol/L (10-20); BUN (Urea Nitrogen) 17 mg/dL (9.8-20.1); Calc. Creatinine Clearance 61 mL/min (70-130); Calcium 8.7 mg/dL (7.8-10.44); Carbon Dioxide 25 mmol/L (23-31); Chloride 103 mmol/L (98-107); Estimated GFR 77; Glucose 130 mg/dL (83-110); Potassium 3.9 mmol/L (3.5-5.1); Sodium 137 mmol/L (136-145)
[2023-01-24] MEDS ORDERED: Furosemide 40 MG/4 ML VIAL SLOW IVP SCH (12:15)
[2023-01-24 17:16] VITALS: BMI 24.9
[2023-01-24] MEDS: Labetalol HCl 100 MG/20 ML VIAL SLOW IVP PRN (17:32)
[2023-01-24] MEDS: Melatonin 3 MG TAB PO SCH (20:29)
[2023-01-24] MEDS: hydrALAZINE 20 MG/ML VIAL SLOW IVP PRN (22:00)
[2023-01-25] MEDS: Acetaminophen 325 MG TAB PO PRN (02:18)
[2023-01-25] MEDS: hydrALAZINE 20 MG/ML VIAL SLOW IVP PRN (04:26)
[2023-01-25 08:38] LABS: Anion Gap 14 mmol/L (10-20); BUN (Urea Nitrogen) 16 mg/dL (9.8-20.1); Calc. Creatinine Clearance 61 mL/min (70-130); Calcium 8.4 mg/dL (7.8-10.44); Carbon Dioxide 26 mmol/L (23-31); Chloride 100 mmol/L (98-107); Estimated GFR 77; Glucose 100 mg/dL (83-110); Magnesium 1.8 mg/dL (1.6-2.6); Phosphorus 3.3 mg/dL (2.3-4.7); Potassium 3.7 mmol/L (3.5-5.1); Sodium 136 mmol/L (136-145)
[2023-01-25] MEDS: Thiamine 100 MG TAB PO SCH (10:16)
[2023-01-25] MEDS: Amlodipine 5 MG TAB PO SCH (10:16)
[2023-01-25] MEDS: Famotidine 20 MG TAB PO SCH (10:16)
[2023-01-25] MEDS: Folic Acid 1 MG TAB PO SCH (10:16)
[2023-01-25] MEDS: Polyethylene Glycol 3350 17 GM Packet PO SCH (10:17)
[2023-01-25] MEDS: Metoprolol Tartrate 100 MG TAB PO SCH (10:17)
[2023-01-25] MEDS: Sodium Chloride 0.65% Nasal 44 ML BOT EA NARE SCH ×2 (10:20→16:43)
[2023-01-25 11:59] VITALS: TEMP 97.5
[2023-01-25 12:34] VITALS: BP 154/90
== END 2023-01-25 17:47 | disposition home or self-care (01) | DRG 82 ==
LOC: IMCU/EMU 15:20 → SURG A 01-16 15:36
PROVIDERS: ADMIT Surgery; ATTEND Surgery
DX: S06.5XAA Traumatic subdural hemorrhage with loss of consciousness status unknown, initial encounter (principal); A41.9 Sepsis, unspecified organism; G93.41 Metabolic encephalopathy; S22.089A Unspecified fracture of T11-T12 vertebra, initial encounter for closed fracture; N39.0 Urinary tract infection, site not specified; I10 Essential (primary) hypertension; G89.29 Other chronic pain; J44.9 Chronic obstructive pulmonary disease, unspecified; I48.91 Unspecified atrial fibrillation; M19.90 Unspecified osteoarthritis, unspecified site; E11.9 Type 2 diabetes mellitus without complications; W19.XXXA Unspecified fall, initial encounter; Z20.822 Contact with and (suspected) exposure to COVID-19; Z86.73 Personal history of transient ischemic attack (TIA), and cerebral infarction without residual deficits; Z90.49 Acquired absence of other specified parts of digestive tract; Z98.890 Other specified postprocedural states; Z90.710 Acquired absence of both cervix and uterus; Y92.9 Unspecified place or not applicable
CPT/HCPCS: 36415; 36416; 70450; 80048; 80143; 80179; 80202; 82140; 83735; 83880; 84100; 84145; 84443; 85025; 87081; 87086; 87449; 87899; 93005; 93010; 93306; 93970; 80307; J0360; J0692; J1940; J2060; J3370; J3475; J3480; J3490; J7050; J7120; S0028

== ENCOUNTER 2023-03-14 10:40 | Inpatient (IN) | payer OTHER, MEDICAID ==
[2023-03-14] MEDS ORDERED: Ondansetron PF 4 MG/2 ML Vial ONE (11:22)
[2023-03-14] MEDS ORDERED: Morphine 4 MG/ML VIAL ONE ×2 (11:22→14:38)
[2023-03-14 11:59] LABS: #Eosinphils 0.1 thou/uL (0.0-0.7); #Lymphocytes 2.2 thou/uL (1.20-3.40); #Monocytes 0.5 thou/uL (0.11-0.59); #Neutrophils 7.2 thou/uL (1.40-6.50); %Basophils 0.5 % (0.0-1.0); %Eosinophils 0.9 % (0.0-10.0); %Lymphocytes 21.6 % (21.0-51.0); %Neutrophils 72.1 % (42.0-75.0); Mean Corpuscular Hemoglobin 29.6 pg (27.0-31.0); Mean Corpuscular Volume 89.7 fl (78.0-98.0); Mean Platelet Volume 7.8 fL (7.4-10.4); Platelet Count 325 10x3/uL (130-400); RBC Distribution Width 16.2 % (11.5-14.5); Red Blood Cell (RBC) Count 4.73 mill/uL (4.20-5.40)
[2023-03-14 12:11] LABS: INR-International Normal Ratio 1.3; Prothrombin Time 16.3 sec (12.0-14.7)
[2023-03-14 12:12] LABS: PTT 30.9 sec (22.9-36.1)
[2023-03-14 12:17] LABS: ALT (SGPT) Less than 7 U/L (8-55); AST (SGOT) 14 U/L (5-34); Albumin 3.4 g/dL (3.4-4.8); Alkaline Phosphatase 130 U/L (40-110); Anion Gap 16 mmol/L (10-20); BUN (Urea Nitrogen) 14 mg/dL (9.8-20.1); Bilirubin, Total 0.8 mg/dL (0.2-1.2); Calc. Creatinine Clearance 0 mL/min (70-130); Calcium 8.6 mg/dL (7.8-10.44); Carbon Dioxide 28 mmol/L (23-31); Chloride 98 mmol/L (98-107); Estimated GFR 74; Globulin 2.8 g/dL (2.4-3.5); Glucose 105 mg/dL (83-110); Protein, Total 6.2 g/dL (5.8-8.1); Sodium 139 mmol/L (136-145)
[2023-03-14 12:21] LABS: Potassium 2.5 mmol/L (3.5-5.1)
[2023-03-14] MEDS ORDERED: Potassium Chloride 20 MEQ TAB ONE ×2 (12:47→20:08)
[2023-03-14] MEDS ORDERED: NS 0.9% w/ 20 MEQ KCL 1,000 ML ONE (12:52)
[2023-03-14] MEDS ORDERED: Acetaminophen 325 MG TAB PO PRN (15:26)
[2023-03-14 15:30] LABS: Magnesium 1.6 mg/dL (1.6-2.6)
[2023-03-14] MEDS ORDERED: Electrolyte Replacement Protocol 1 EACH FS SCH (15:30)
[2023-03-14] MEDS ORDERED: Metoclopramide HCl 10 MG/2 ML VIAL IVP PRN (15:30)
[2023-03-14] MEDS ORDERED: Piperacillin/Tazobactam 3.375 GM in Sodium Chloride 0.9% 100 ML IVPB SCH (16:00)
[2023-03-14] MEDS ORDERED: Magnesium 2 GM/50 ML(in water) 2 GM in Premix Bag 1 BAG IVPB SCH (18:00)
[2023-03-14 20:01] LABS: Potassium 3.4 mmol/L (3.5-5.1)
[2023-03-14] MEDS ORDERED: Potassium Chloride 20 MEQ TAB PO SCH (20:15)
[2023-03-14] MEDS: Metoprolol Tartrate 25 MG TAB PO SCH (20:53)
[2023-03-14] MEDS: Morphine 4 MG/ML VIAL SLOW IVP PRN (22:22)
[2023-03-14] MEDS: Piperacillin/Tazobactam 3.375 GM in Sodium Chloride 0.9% 100 ML IVPB SCH (22:25)
[2023-03-14 22:58] VITALS: BMI 25.2
[2023-03-14] MEDS: Budesonide 0.5 MG/2 ML NEB NEB SCH (23:06)
[2023-03-14] MEDS: metroNIDAZOLE 500 MG in Premix Bag 1 BAG IVPB SCH (23:57)
[2023-03-15] MEDS: Piperacillin/Tazobactam 3.375 GM in Sodium Chloride 0.9% 100 ML IVPB SCH ×3 (04:10→21:00)
[2023-03-15 04:55] LABS: #Basophils 0.1 thou/uL (0.0-0.2); #Eosinphils 0.1 thou/uL (0.0-0.7); #Lymphocytes 2.4 thou/uL (1.20-3.40); #Monocytes 0.6 thou/uL (0.11-0.59); #Neutrophils 5.8 thou/uL (1.40-6.50); %Basophils 0.7 % (0.0-1.0); %Eosinophils 1.2 % (0.0-10.0); %Lymphocytes 26.8 % (21.0-51.0); %Monocytes 6.4 % (0.0-10.0); %Neutrophils 64.9 % (42.0-75.0); Hemoglobin 14.1 g/dL (12.0-16.0); Mean Corpuscular HGB CONC 32.2 g/dL (32.0-36.0); Mean Corpuscular Hemoglobin 28.9 pg (27.0-31.0); Mean Corpuscular Volume 89.9 fl (78.0-98.0); Mean Platelet Volume 8.4 fL (7.4-10.4); Platelet Count 289 10x3/uL (130-400); RBC Distribution Width 16.5 % (11.5-14.5); Red Blood Cell (RBC) Count 4.86 mill/uL (4.20-5.40); White Blood Cell (WBC) Count 8.9 10x3/uL (4.8-10.8)
[2023-03-15] MEDS: Morphine 4 MG/ML VIAL SLOW IVP PRN ×3 (05:06→17:53)
[2023-03-15 05:08] LABS: Phosphorus 3.5 mg/dL (2.3-4.7)
[2023-03-15 05:10] LABS: Anion Gap 14 mmol/L (10-20); BUN (Urea Nitrogen) 15 mg/dL (9.8-20.1); Calc. Creatinine Clearance 54 mL/min (70-130); Carbon Dioxide 28 mmol/L (23-31); Chloride 101 mmol/L (98-107); Estimated GFR 66; Glucose 100 mg/dL (83-110); Magnesium 2.3 mg/dL (1.6-2.6); Potassium 3.6 mmol/L (3.5-5.1); Sodium 139 mmol/L (136-145)
[2023-03-15] MEDS: metroNIDAZOLE 500 MG in Premix Bag 1 BAG IVPB SCH ×2 (06:40→15:05)
[2023-03-15] MEDS: Budesonide 0.5 MG/2 ML NEB NEB SCH ×2 (06:44→19:19)
[2023-03-15] MEDS: Metoprolol Tartrate 25 MG TAB PO SCH (08:58)
[2023-03-15] MEDS ORDERED: Melatonin 3 MG TAB PO PRN (15:51)
[2023-03-15 17:10] LABS: RBC Count-Automated (BF) 1942 /cu.mm; WBC/Nucleated-Auto (BF) 100 /cu.mm
[2023-03-15 17:16] LABS: BF Color Yellow; Body Fluid Source Pleural Fluid; Clarity Hazy (Clear); Tube # EDTA
[2023-03-15 17:31] LABS: BF Segmented Neutrophils 20 %; Cell Count Non Hematic 11 %; Lymphocytes 69 %
[2023-03-15 17:33] LABS: Pleural Fluid, Amylase Less than 30 U/L (Not Available); Pleural Fluid, Glucose 140 mg/dL; Pleural Fluid, LDH 111 U/L (Not Available); Pleural Fluid, Protein 2.3 g/dL
[2023-03-15] MEDS: Metoprolol Tartrate 100 MG TAB PO SCH (21:00)
[2023-03-16] MEDS: metroNIDAZOLE 500 MG in Premix Bag 1 BAG IVPB SCH ×3 (02:10→15:27)
[2023-03-16 04:27] LABS: #Eosinphils 0.2 thou/uL (0.0-0.7); #Monocytes 0.4 thou/uL (0.11-0.59); #Neutrophils 6.3 thou/uL (1.40-6.50); %Basophils 0.3 % (0.0-1.0); %Eosinophils 2.5 % (0.0-10.0); %Lymphocytes 22.2 % (21.0-51.0); %Monocytes 4.7 % (0.0-10.0); %Neutrophils 70.3 % (42.0-75.0); Hemoglobin 13.4 g/dL (12.0-16.0); Mean Corpuscular HGB CONC 30.8 g/dL (32.0-36.0); Mean Corpuscular Hemoglobin 27.7 pg (27.0-31.0); Mean Corpuscular Volume 89.7 fl (78.0-98.0); Mean Platelet Volume 8.1 fL (7.4-10.4); Platelet Count 294 10x3/uL (130-400); RBC Distribution Width 16.5 % (11.5-14.5); Red Blood Cell (RBC) Count 4.86 mill/uL (4.20-5.40)
[2023-03-16 04:57] LABS: Anion Gap 13 mmol/L (10-20); BUN (Urea Nitrogen) 17 mg/dL (9.8-20.1); Calc. Creatinine Clearance 59 mL/min (70-130); Calcium 8.8 mg/dL (7.8-10.44); Carbon Dioxide 26 mmol/L (23-31); Chloride 102 mmol/L (98-107); Estimated GFR 74; Glucose 117 mg/dL (83-110); Potassium 3.4 mmol/L (3.5-5.1); Sodium 138 mmol/L (136-145)
[2023-03-16] MEDS: Morphine 4 MG/ML VIAL SLOW IVP PRN ×3 (05:29→20:26)
[2023-03-16] MEDS: Piperacillin/Tazobactam 3.375 GM in Sodium Chloride 0.9% 100 ML IVPB SCH ×3 (06:32→20:25)
[2023-03-16] MEDS: Budesonide 0.5 MG/2 ML NEB NEB SCH ×2 (07:42→19:07)
[2023-03-16] MEDS ORDERED: Potassium Chloride 20 MEQ TAB PO SCH (08:00)
[2023-03-16] MEDS: Metoprolol Tartrate 100 MG TAB PO SCH ×2 (09:22→20:25)
[2023-03-16] MEDS: Amlodipine 5 MG TAB PO SCH (09:23)
[2023-03-16 21:35] LABS: Campy jejuni + coli by PCR Negative (Negative); STEC Shiga Toxin 1+2 Negative (Negative); Salmonella spp. by PCR Negative (Negative); Shigella spp + EIEC by PCR Negative (Negative)
[2023-03-17] MEDS: metroNIDAZOLE 500 MG in Premix Bag 1 BAG IVPB SCH ×3 (00:41→16:33)
[2023-03-17] MEDS: Piperacillin/Tazobactam 3.375 GM in Sodium Chloride 0.9% 100 ML IVPB SCH ×2 (03:39→12:36)
[2023-03-17 06:02] LABS: Anion Gap 14 mmol/L (10-20); BUN (Urea Nitrogen) 13 mg/dL (9.8-20.1); Calc. Creatinine Clearance 60 mL/min (70-130); Calcium 8.9 mg/dL (7.8-10.44); Carbon Dioxide 29 mmol/L (23-31); Chloride 102 mmol/L (98-107); Estimated GFR 74; Glucose 106 mg/dL (83-110); Potassium 3.5 mmol/L (3.5-5.1); Sodium 141 mmol/L (136-145)
[2023-03-17] MEDS ORDERED: Potassium Chloride 20 MEQ TAB PO SCH (08:00)
[2023-03-17] MEDS: Budesonide 0.5 MG/2 ML NEB NEB SCH ×2 (08:06→18:59)
[2023-03-17] MEDS ORDERED: PARoxetine 20 MG TAB PO SCH (09:00)
[2023-03-17] MEDS: Metoprolol Tartrate 100 MG TAB PO SCH ×2 (10:11→20:08)
[2023-03-17] MEDS: Amlodipine 5 MG TAB PO SCH (10:12)
[2023-03-17] MEDS: PARoxetine 20 MG TAB PO SCH (10:12)
[2023-03-17] MEDS: Morphine 4 MG/ML VIAL SLOW IVP PRN ×3 (12:34→21:54)
[2023-03-18] MEDS: Amlodipine 5 MG TAB PO SCH (08:08)
[2023-03-18] MEDS: Metoprolol Tartrate 100 MG TAB PO SCH ×2 (08:09→20:59)
[2023-03-18] MEDS: PARoxetine 20 MG TAB PO SCH (08:09)
[2023-03-18] MEDS: Budesonide 0.5 MG/2 ML NEB NEB SCH ×2 (10:25→18:58)
[2023-03-18] MEDS: Morphine 4 MG/ML VIAL SLOW IVP PRN ×2 (12:08→21:51)
[2023-03-18 13:20] LABS: #Basophils 0.1 thou/uL (0.0-0.2); #Eosinphils 0.4 thou/uL (0.0-0.7); #Lymphocytes 2.4 thou/uL (1.20-3.40); #Monocytes 0.5 thou/uL (0.11-0.59); #Neutrophils 5.2 thou/uL (1.40-6.50); %Basophils 1.4 % (0.0-1.0); %Lymphocytes 28.1 % (21.0-51.0); %Monocytes 5.8 % (0.0-10.0); %Neutrophils 59.7 % (42.0-75.0); Hemoglobin 14.5 g/dL (12.0-16.0); Mean Corpuscular HGB CONC 32.3 g/dL (32.0-36.0); Mean Corpuscular Hemoglobin 28.8 pg (27.0-31.0); Mean Corpuscular Volume 88.9 fl (78.0-98.0); Mean Platelet Volume 7.9 fL (7.4-10.4); Platelet Count 292 10x3/uL (130-400); RBC Distribution Width 16.9 % (11.5-14.5); Red Blood Cell (RBC) Count 5.04 mill/uL (4.20-5.40); White Blood Cell (WBC) Count 8.6 10x3/uL (4.8-10.8)
[2023-03-18 13:39] LABS: Anion Gap 15 mmol/L (10-20); BUN (Urea Nitrogen) 12 mg/dL (9.8-20.1); Calc. Creatinine Clearance 58 mL/min (70-130); Carbon Dioxide 28 mmol/L (23-31); Chloride 101 mmol/L (98-107); Estimated GFR 73; Glucose 138 mg/dL (83-110); Potassium 4.3 mmol/L (3.5-5.1); Sodium 140 mmol/L (136-145)
[2023-03-18] MEDS ORDERED: Furosemide 20 MG/2 ML VIAL SLOW IVP SCH (17:15)
[2023-03-19 04:57] LABS: #Basophils 0.1 thou/uL (0.0-0.2); #Eosinphils 0.5 thou/uL (0.0-0.7); #Lymphocytes 2.6 thou/uL (1.20-3.40); #Monocytes 0.7 thou/uL (0.11-0.59); #Neutrophils 3.8 thou/uL (1.40-6.50); %Basophils 0.7 % (0.0-1.0); %Lymphocytes 34.1 % (21.0-51.0); %Monocytes 9.2 % (0.0-10.0); Hemoglobin 13.8 g/dL (12.0-16.0); Mean Corpuscular HGB CONC 32.3 g/dL (32.0-36.0); Mean Corpuscular Hemoglobin 28.6 pg (27.0-31.0); Mean Corpuscular Volume 88.7 fl (78.0-98.0); Mean Platelet Volume 8.1 fL (7.4-10.4); Platelet Count 267 10x3/uL (130-400); RBC Distribution Width 17.1 % (11.5-14.5); Red Blood Cell (RBC) Count 4.83 mill/uL (4.20-5.40); White Blood Cell (WBC) Count 7.7 10x3/uL (4.8-10.8)
[2023-03-19 05:17] LABS: Anion Gap 15 mmol/L (10-20); BUN (Urea Nitrogen) 12 mg/dL (9.8-20.1); Calc. Creatinine Clearance 59 mL/min (70-130); Carbon Dioxide 26 mmol/L (23-31); Chloride 102 mmol/L (98-107); Estimated GFR 74; Potassium 3.7 mmol/L (3.5-5.1); Sodium 139 mmol/L (136-145)
[2023-03-19 05:18] LABS: Calcium 8.7 mg/dL (7.8-10.44); Glucose 107 mg/dL (83-110); Magnesium 1.8 mg/dL (1.6-2.6); Phosphorus 3.1 mg/dL (2.3-4.7)
[2023-03-19] MEDS: Budesonide 0.5 MG/2 ML NEB NEB SCH (07:26)
[2023-03-19] MEDS ORDERED: Magnesium 2 GM/50 ML(in water) 2 GM in Premix Bag 1 BAG IVPB SCH (08:00)
[2023-03-19] MEDS: PARoxetine 20 MG TAB PO SCH (08:43)
[2023-03-19] MEDS: Amlodipine 5 MG TAB PO SCH (08:43)
[2023-03-19] MEDS: Metoprolol Tartrate 100 MG TAB PO SCH (08:43)
[2023-03-19 12:31] VITALS: TEMP 98.3
[2023-03-19 17:12] VITALS: BP 138/92
[2023-03-19] MEDS ORDERED: Apixaban 5 MG TAB PO SCH (21:00)
[2023-03-22 10:15] LABS: Fungus Stain Final report (.)
== END 2023-03-19 14:30 | disposition home or self-care (01) | DRG 205 ==
LOC: ERS 10:40 → ERHOLD 14:47 → 2NO 19:05 → OBSVTOIN 03-15 15:39
PROVIDERS: ADMIT Internal Medicine; ATTEND Internal Medicine
PROC: 0W993ZZ Drainage of Right Pleural Cavity, Percutaneous Approach (ICD-10-PCS; principal; 2023-03-15)
DX: S22.31XA Fracture of one rib, right side, initial encounter for closed fracture (principal); G93.41 Metabolic encephalopathy; J96.21 Acute and chronic respiratory failure with hypoxia; J18.9 Pneumonia, unspecified organism; J91.8 Pleural effusion in other conditions classified elsewhere; I50.32 Chronic diastolic (congestive) heart failure; G89.29 Other chronic pain; J44.9 Chronic obstructive pulmonary disease, unspecified; I48.91 Unspecified atrial fibrillation; I11.0 Hypertensive heart disease with heart failure; R29.6 Repeated falls; M54.50 Low back pain, unspecified; L40.0 Psoriasis vulgaris; E87.6 Hypokalemia; R94.31 Abnormal electrocardiogram [ECG] [EKG]; W18.30XA Fall on same level, unspecified, initial encounter; F03.90 Unspecified dementia, unspecified severity, without behavioral disturbance, psychotic disturbance, mood disturbance, and anxiety; I34.0 Nonrheumatic mitral (valve) insufficiency; Z78.1 Physical restraint status; Z87.820 Personal history of traumatic brain injury; Z91.81 History of falling; Z99.81 Dependence on supplemental oxygen; Z90.710 Acquired absence of both cervix and uterus; Z90.49 Acquired absence of other specified parts of digestive tract
CPT/HCPCS: 36415; 36416; 70450; 70551; 71045; 71260; 74177; 80048; 80053; 82150; 82945; 83615; 83735; 83880; 84100; 84145; 84157; 85025; 85060; 85610; 85730; 87070; 87116; 87205; 87206; 87324; 87449; 87505; 88112; 88305; 89051; 93005; 94640; 96375; 96376; G0378; J1650; J1940; J2270; J2405; J2543; J3475; J3480; J3490; J7626